=== PATIENT | female | born 1940 | race Caucasian/White ===

== ENCOUNTER 2020-05-01 16:18 | Inpatient (IN) ==
[2020-05-01 16:55] LABS: Bacteria,Urine Occasional /HPF (Few); Bilirubin,Urine Negative (Negative); Blood, Urine Negative (Negative); Glucose,Urine (UA) Negative (Negative); Hyaline Casts,Urine 9 /LPF (0-3); Ketones,Urine Negative (Negative); Nitrite,Urine Negative (Negative); Protein,Urine Negative; RBC,Urine 25 /HPF (0-4); Urine Appearance CLOUDY (Clear); Urine Color Yellow (Yellow); Urine Specific Gravity 1.008 (1.001-1.035); Urine Urobilinogen < 2.0 EU/DL (0.2-1.0); WBC,Urine 160 /HPF (0-6)
[2020-05-01 17:28] LABS: Basophils % 0.4 % (0.0-0.8); Eosinophils # 0.1 10*3/uL (0.0-0.87); Eosinophils % 0.9 % (0.00-10.9); Hematocrit 27.4 VOL% (35.7-47.0); Immature Granulocytes Absolute 0.07 #; Lymphocytes # 1.5 10*3/uL (1.4-4.0); Lymphocytes % 20.9 % (21.3-54.2); Mean Corpuscular HGB Conc 32.8 GM/DL (32-36); Mean Corpuscular Volume 95.8 FL (87-102); Mean Platelet Volume 10.2 FL (9.6-12.0); Monocytes % 8.3 % (1.7-12.7); Neutrophils % 68.5 % (38.7-73.9); Platelet Count 72 T/CUMM (130-400); Red Blood Count 2.86 MC/CUMM (3.8-5.5)
[2020-05-01 17:47] LABS: INR 1.2; PT Patient Result 12.4 SECS (9.8-11.9); Partial Thromboplastin Time 29.5 SECS (23.9-33.8)
[2020-05-01 18:09] LABS: Albumin 2.6 G/DL (3.4-5.0); Calcium 8.5 MG/DL (8.5-10.1); Total Protein 6.8 G/DL (6.4-8.3)
[2020-05-01] MEDS ORDERED: cefTRIAXone 1,000 MG in SODIUM CHLORIDE 0.9% 100 ML IV STA (18:18)
[2020-05-01] MEDS ORDERED: LACTULOSE 20 GM/30 ML UDCUP PO STA (18:59)
[2020-05-01] MEDS ORDERED: GLUCAGON 1 MG VIAL IM PRN (19:14)
[2020-05-01] MEDS ORDERED: DEXTROSE 50% 25 GM/50 ML VIAL IV PRN (19:14)
[2020-05-01] MEDS ORDERED: DEXTROSE 50% 25 GM/50 ML SYRINGE IV PRN (19:19)
[2020-05-01] MEDS ORDERED: ZINC SULFATE 220 MG CAPSULE PO ONE (21:00)
[2020-05-02] MEDS: LACTATED RINGERS 1,000 ML IV SCH ×6 (01:40→21:27)
[2020-05-02] MEDS: INSULIN REGULAR 100 UNIT/ML SUBCUT SCH ×5 (01:59→22:27)
[2020-05-02] MEDS: ONDANSETRON 4 MG/2 ML VIAL IV PRN ×2 (04:36→20:43)
[2020-05-02 07:57] LABS: Basophils % 0.4 % (0.0-0.8); Eosinophils # 0.1 10*3/uL (0.0-0.87); Eosinophils % 0.9 % (0.00-10.9); Hematocrit 26.7 VOL% (35.7-47.0); Hemoglobin 8.8 GM/DL (12.0-16.0); Immature Granulocytes % 0.7 %; Immature Granulocytes Absolute 0.05 #; Lymphocytes # 1.9 10*3/uL (1.4-4.0); Lymphocytes % 25.2 % (21.3-54.2); Mean Platelet Volume 10.4 FL (9.6-12.0); Monocytes % 7.8 % (1.7-12.7); Platelet Count 71 T/CUMM (130-400); Red Blood Count 2.78 MC/CUMM (3.8-5.5); White Blood Count 7.7 T/CUMM (4-12)
[2020-05-02 08:24] LABS: Albumin 2.4 G/DL (3.4-5.0); Bilirubin,Total 1.3 MG/DL (0.2-1.0); Calcium 8.6 MG/DL (8.5-10.1); Osmolality,Calculated 288.1 MOS/KG (273-304); Total Protein 6.7 G/DL (6.4-8.3)
[2020-05-02] MEDS ORDERED: NITROGLYCERIN SL 0.4 MG TABLET SL PRN (09:12)
[2020-05-02] MEDS: PANTOPRAZOLE 40 MG TABLET PO SCH (09:54)
[2020-05-02 11:03] LABS: Hepatitis B Core IgM Quant 0.15 Index; Hepatitis B Surface Ag Quant < 0.10 Index; Hepatitis B Surface Ag Result Negative (Negative); Hepatitis C Virus Ab Quant 0.05 Index; Hepatitis C Virus Ab Result Negative (Negative)
[2020-05-02 11:42] LABS: Lymphocytes 16 % (20-55); Polychromasia Slight; Schistocytes Few; Segmented Neutrophils 82 % (50-85); Total Cells Counted 100
[2020-05-02 11:43] LABS: Hypochromasia 2+; Ovalocytes Few; Tear Drop Cells Slight
[2020-05-02] MEDS: FUROSEMIDE 40 MG TABLET PO SCH (15:03)
[2020-05-02] MEDS: LACTULOSE 20 GM/30 ML UDCUP PO SCH (17:37)
[2020-05-02] MEDS: RIVASTIGMINE 1.5 MG CAPSULE PO SCH (22:17)
[2020-05-02] MEDS: MIRTAZAPINE 15 MG TABLET PO SCH (22:18)
[2020-05-02] MEDS: GABAPENTIN 600 MG TABLET PO SCH (22:19)
[2020-05-02] MEDS: traZODone 50 MG TABLET PO SCH (22:19)
[2020-05-02] MEDS: clonazePAM 0.5 MG TABLET PO SCH (22:19)
[2020-05-02] MEDS: PEG PROPYLENE GLYCOL BOTH EYES SCH (22:27)
[2020-05-02] MEDS: DOCUSATE SODIUM 100 MG CAPSULE PO SCH (22:27)
[2020-05-03] MEDS: LACTATED RINGERS 1,000 ML IV SCH ×5 (02:16→19:29)
[2020-05-03 05:57] LABS: Basophils % 0.5 % (0.0-0.8); Eosinophils # 0.1 10*3/uL (0.0-0.87); Eosinophils % 1.2 % (0.00-10.9); Hemoglobin 8.3 GM/DL (12.0-16.0); Immature Granulocytes % 0.6 %; Immature Granulocytes Absolute 0.05 #; Lymphocytes % 24.2 % (21.3-54.2); Mean Corpuscular HGB Conc 31.9 GM/DL (32-36); Mean Corpuscular Volume 98.9 FL (87-102); Mean Platelet Volume 11.2 FL (9.6-12.0); Monocytes % 7.4 % (1.7-12.7); Neutrophils % 66.1 % (38.7-73.9); Platelet Count 67 T/CUMM (130-400); Red Blood Count 2.63 MC/CUMM (3.8-5.5); Red Cell Distribution Width 19.5 % (9.3-17.3); White Blood Count 8.2 T/CUMM (4-12)
[2020-05-03 06:42] LABS: Hypochromasia 1+; Microcytosis 1+; Platelet Estimate Decreased
[2020-05-03] MEDS: FUROSEMIDE 40 MG TABLET PO SCH ×2 (07:09→13:18)
[2020-05-03 07:30] LABS: Basophils % 0.5 % (0.0-0.8); Eosinophils # 0.1 10*3/uL (0.0-0.87); Eosinophils % 1.1 % (0.00-10.9); Hematocrit 26.4 VOL% (35.7-47.0); Hemoglobin 8.6 GM/DL (12.0-16.0); Immature Granulocytes % 0.7 %; Immature Granulocytes Absolute 0.06 #; Lymphocytes # 2.3 10*3/uL (1.4-4.0); Lymphocytes % 26.9 % (21.3-54.2); Mean Corpuscular HGB Conc 32.6 GM/DL (32-36); Mean Corpuscular Volume 96.7 FL (87-102); Mean Platelet Volume 10.4 FL (9.6-12.0); Monocytes % 7.9 % (1.7-12.7); Neutrophils % 62.9 % (38.7-73.9); Platelet Count 69 T/CUMM (130-400); Red Blood Count 2.73 MC/CUMM (3.8-5.5); Red Cell Distribution Width 19.4 % (9.3-17.3); White Blood Count 8.4 T/CUMM (4-12)
[2020-05-03 07:51] LABS: Hypochromasia 1+; Lymphocytes 24 % (20-55); Microcytosis 1+; Ovalocytes Slight; Platelet Estimate Decreased; Segmented Neutrophils 70 % (50-85); Total Cells Counted 100
[2020-05-03] MEDS: INSULIN REGULAR 100 UNIT/ML SUBCUT SCH ×4 (08:44→22:04)
[2020-05-03] MEDS ORDERED: LACTULOSE 20 GM/30 ML UDCUP PO SCH (09:00)
[2020-05-03] MEDS: AMIODARONE 200 MG TABLET PO SCH (09:52)
[2020-05-03] MEDS: LEVOTHYROXINE 88 MCG TABLET PO SCH (09:52)
[2020-05-03] MEDS: metOLazone 5 MG TABLET PO SCH (09:52)
[2020-05-03] MEDS: POTASSIUM CHLORIDE 20 MEQ TABLET PO SCH (09:52)
[2020-05-03] MEDS: FOLIC ACID 1 MG TABLET PO SCH (09:53)
[2020-05-03] MEDS: LOSARTAN 50 MG TABLET PO SCH (09:53)
[2020-05-03] MEDS: RIVASTIGMINE 1.5 MG CAPSULE PO SCH ×2 (09:53→21:28)
[2020-05-03] MEDS: ASPIRIN EC 81 MG TABLET PO SCH (09:53)
[2020-05-03] MEDS: ASCORBIC ACID 500 MG TABLET PO SCH (09:53)
[2020-05-03] MEDS: rOPINIRole 1 MG TABLET PO SCH (09:53)
[2020-05-03] MEDS: FERROUS SULFATE 325 MG TABLET PO SCH (09:53)
[2020-05-03] MEDS: PANTOPRAZOLE 40 MG TABLET PO SCH ×2 (09:53→10:02)
[2020-05-03] MEDS: LACTULOSE 20 GM/30 ML UDCUP PO SCH ×2 (09:54→21:29)
[2020-05-03] MEDS: clonazePAM 0.5 MG TABLET PO SCH ×2 (09:54→21:28)
[2020-05-03] MEDS: MEROPENEM 500 MG in SODIUM CHLORIDE 0.9% 100 ML IV SCH (14:51)
[2020-05-03] MEDS ORDERED: LACTULOSE 20 GM/30 ML UDCUP PO PRN (17:01)
[2020-05-03] MEDS: GABAPENTIN 600 MG TABLET PO SCH (21:27)
[2020-05-03] MEDS: traZODone 50 MG TABLET PO SCH (21:28)
[2020-05-03] MEDS: DOCUSATE SODIUM 100 MG CAPSULE PO SCH (21:28)
[2020-05-03] MEDS: MIRTAZAPINE 15 MG TABLET PO SCH (21:28)
[2020-05-03] MEDS: PEG PROPYLENE GLYCOL BOTH EYES SCH (22:57)
[2020-05-04] MEDS: MEROPENEM 500 MG in SODIUM CHLORIDE 0.9% 100 ML IV SCH ×2 (03:06→14:26)
[2020-05-04] MEDS: LACTATED RINGERS 1,000 ML IV SCH ×3 (04:56→23:00)
[2020-05-04 06:39] LABS: Albumin 2.1 G/DL (3.4-5.0); Osmolality,Calculated 281.5 MOS/KG (273-304); Total Protein 6.6 G/DL (6.4-8.3)
[2020-05-04] MEDS: LACTULOSE 20 GM/30 ML UDCUP PO SCH ×2 (09:38→22:35)
[2020-05-04] MEDS: RIVASTIGMINE 1.5 MG CAPSULE PO SCH ×2 (09:38→22:42)
[2020-05-04] MEDS: AMIODARONE 200 MG TABLET PO SCH (09:38)
[2020-05-04] MEDS: rOPINIRole 1 MG TABLET PO SCH (09:38)
[2020-05-04] MEDS: clonazePAM 0.5 MG TABLET PO SCH ×2 (09:38→22:35)
[2020-05-04] MEDS: ASPIRIN EC 81 MG TABLET PO SCH (09:38)
[2020-05-04] MEDS: FOLIC ACID 1 MG TABLET PO SCH (09:39)
[2020-05-04] MEDS: POTASSIUM CHLORIDE 20 MEQ TABLET PO SCH (09:39)
[2020-05-04] MEDS: metOLazone 5 MG TABLET PO SCH (09:39)
[2020-05-04] MEDS: LEVOTHYROXINE 88 MCG TABLET PO SCH (09:39)
[2020-05-04] MEDS: FUROSEMIDE 40 MG TABLET PO SCH ×2 (09:39→14:01)
[2020-05-04] MEDS: INSULIN REGULAR 100 UNIT/ML SUBCUT SCH ×4 (09:39→23:02)
[2020-05-04] MEDS: FERROUS SULFATE 325 MG TABLET PO SCH (09:39)
[2020-05-04] MEDS: PANTOPRAZOLE 40 MG TABLET PO SCH (09:39)
[2020-05-04] MEDS: ASCORBIC ACID 500 MG TABLET PO SCH (09:39)
[2020-05-04] MEDS: LOSARTAN 50 MG TABLET PO SCH (09:39)
[2020-05-04] MEDS: ONDANSETRON 4 MG/2 ML VIAL IV PRN ×2 (14:08→22:41)
[2020-05-04] MEDS: POLYETHYLENE GLYCOL POWDER 17 GM PACK PO SCH (14:27)
[2020-05-04] MEDS: MIRTAZAPINE 15 MG TABLET PO SCH (22:35)
[2020-05-04] MEDS: GABAPENTIN 600 MG TABLET PO SCH (22:35)
[2020-05-04] MEDS: traZODone 50 MG TABLET PO SCH (22:35)
[2020-05-04] MEDS: DOCUSATE SODIUM 100 MG CAPSULE PO SCH (22:35)
[2020-05-04] MEDS: PEG PROPYLENE GLYCOL BOTH EYES SCH (22:37)
[2020-05-04] MEDS: RIFAXIMIN 550 MG TABLET PO SCH (22:41)
[2020-05-05] MEDS: MEROPENEM 500 MG in SODIUM CHLORIDE 0.9% 100 ML IV SCH ×2 (02:11→15:23)
[2020-05-05] MEDS: LACTATED RINGERS 1,000 ML IV SCH ×4 (03:02→20:45)
[2020-05-05 05:48] LABS: Basophils % 0.4 % (0.0-0.8); Eosinophils # 0.1 10*3/uL (0.0-0.87); Eosinophils % 1.1 % (0.00-10.9); Hemoglobin 9.2 GM/DL (12.0-16.0); Immature Granulocytes % 0.9 %; Immature Granulocytes Absolute 0.06 #; Lymphocytes # 1.9 10*3/uL (1.4-4.0); Lymphocytes % 27.5 % (21.3-54.2); Mean Corpuscular HGB Conc 34.1 GM/DL (32-36); Mean Corpuscular Volume 98.9 FL (87-102); Mean Platelet Volume 10.7 FL (9.6-12.0); Monocytes % 8.5 % (1.7-12.7); Neutrophils % 61.6 % (38.7-73.9); Red Blood Count 2.73 MC/CUMM (3.8-5.5); Red Cell Distribution Width 19.5 % (9.3-17.3)
[2020-05-05 05:51] LABS: Platelet Count 75 T/CUMM (130-400)
[2020-05-05 06:04] LABS: Calcium 7.9 MG/DL (8.5-10.1); Osmolality,Calculated 282.4 MOS/KG (273-304)
[2020-05-05 06:14] LABS: Hypochromasia 1+; Microcytosis Slight; Ovalocytes Slight; Platelet Estimate Decreased
[2020-05-05] MEDS: INSULIN REGULAR 100 UNIT/ML SUBCUT SCH ×4 (07:43→20:52)
[2020-05-05] MEDS: clonazePAM 0.5 MG TABLET PO SCH ×2 (08:01→22:43)
[2020-05-05] MEDS: RIVASTIGMINE 1.5 MG CAPSULE PO SCH ×2 (08:01→22:44)
[2020-05-05] MEDS: rOPINIRole 1 MG TABLET PO SCH (08:01)
[2020-05-05] MEDS: FUROSEMIDE 40 MG TABLET PO SCH ×2 (08:01→15:23)
[2020-05-05] MEDS: LEVOTHYROXINE 88 MCG TABLET PO SCH (08:01)
[2020-05-05] MEDS: metOLazone 5 MG TABLET PO SCH (08:02)
[2020-05-05] MEDS: ASPIRIN EC 81 MG TABLET PO SCH (08:02)
[2020-05-05] MEDS: FERROUS SULFATE 325 MG TABLET PO SCH (08:02)
[2020-05-05] MEDS: RIFAXIMIN 550 MG TABLET PO SCH ×2 (08:02→22:46)
[2020-05-05] MEDS: PANTOPRAZOLE 40 MG TABLET PO SCH (08:02)
[2020-05-05] MEDS: ASCORBIC ACID 500 MG TABLET PO SCH (08:02)
[2020-05-05] MEDS: POTASSIUM CHLORIDE 20 MEQ TABLET PO SCH (08:03)
[2020-05-05] MEDS: LACTULOSE 20 GM/30 ML UDCUP PO SCH ×2 (08:03→22:47)
[2020-05-05] MEDS: FOLIC ACID 1 MG TABLET PO SCH (08:03)
[2020-05-05] MEDS: LOSARTAN 50 MG TABLET PO SCH (08:03)
[2020-05-05] MEDS: AMIODARONE 200 MG TABLET PO SCH (08:03)
[2020-05-05] MEDS: POLYETHYLENE GLYCOL POWDER 17 GM PACK PO SCH (08:03)
[2020-05-05] MEDS: MIRTAZAPINE 15 MG TABLET PO SCH (22:43)
[2020-05-05] MEDS: DOCUSATE SODIUM 100 MG CAPSULE PO SCH (22:45)
[2020-05-05] MEDS: GABAPENTIN 600 MG TABLET PO SCH (22:45)
[2020-05-05] MEDS: traZODone 50 MG TABLET PO SCH (22:45)
[2020-05-05] MEDS: PEG PROPYLENE GLYCOL BOTH EYES SCH (22:49)
[2020-05-06] MEDS: MEROPENEM 500 MG in SODIUM CHLORIDE 0.9% 100 ML IV SCH ×2 (01:46→15:13)
[2020-05-06] MEDS: LACTATED RINGERS 1,000 ML IV SCH ×3 (04:58→23:05)
[2020-05-06] MEDS: LEVOTHYROXINE 88 MCG TABLET PO SCH (07:15)
[2020-05-06] MEDS: FUROSEMIDE 40 MG TABLET PO SCH ×2 (07:15→15:12)
[2020-05-06] MEDS: INSULIN REGULAR 100 UNIT/ML SUBCUT SCH ×4 (07:29→23:05)
[2020-05-06] MEDS: RIVASTIGMINE 1.5 MG CAPSULE PO SCH ×2 (08:27→21:13)
[2020-05-06] MEDS: LACTULOSE 20 GM/30 ML UDCUP PO SCH ×2 (08:27→21:17)
[2020-05-06] MEDS: PANTOPRAZOLE 40 MG TABLET PO SCH (08:28)
[2020-05-06] MEDS: FOLIC ACID 1 MG TABLET PO SCH (08:28)
[2020-05-06] MEDS: rOPINIRole 1 MG TABLET PO SCH (08:28)
[2020-05-06] MEDS: POTASSIUM CHLORIDE 20 MEQ TABLET PO SCH (08:28)
[2020-05-06] MEDS: LOSARTAN 50 MG TABLET PO SCH (08:28)
[2020-05-06] MEDS: metOLazone 5 MG TABLET PO SCH (08:28)
[2020-05-06] MEDS: RIFAXIMIN 550 MG TABLET PO SCH ×2 (08:28→21:16)
[2020-05-06] MEDS: ASPIRIN EC 81 MG TABLET PO SCH (08:28)
[2020-05-06] MEDS: ASCORBIC ACID 500 MG TABLET PO SCH (08:28)
[2020-05-06] MEDS: clonazePAM 0.5 MG TABLET PO SCH ×2 (08:28→21:15)
[2020-05-06] MEDS: AMIODARONE 200 MG TABLET PO SCH (08:28)
[2020-05-06] MEDS: FERROUS SULFATE 325 MG TABLET PO SCH (08:28)
[2020-05-06] MEDS: POLYETHYLENE GLYCOL POWDER 17 GM PACK PO SCH (08:29)
[2020-05-06] MEDS: MIRTAZAPINE 15 MG TABLET PO SCH (21:13)
[2020-05-06] MEDS: traZODone 50 MG TABLET PO SCH (21:14)
[2020-05-06] MEDS: DOCUSATE SODIUM 100 MG CAPSULE PO SCH (21:16)
[2020-05-06] MEDS: GABAPENTIN 600 MG TABLET PO SCH (21:16)
[2020-05-06] MEDS: PEG PROPYLENE GLYCOL BOTH EYES SCH (23:05)
[2020-05-07] MEDS: MEROPENEM 500 MG in SODIUM CHLORIDE 0.9% 100 ML IV SCH (02:15)
[2020-05-07] MEDS: ONDANSETRON 4 MG/2 ML VIAL IV PRN (05:25)
[2020-05-07 06:33] LABS: Basophils % 0.6 % (0.0-0.8); Eosinophils # 0.1 10*3/uL (0.0-0.87); Eosinophils % 0.9 % (0.00-10.9); Hematocrit 27.6 VOL% (35.7-47.0); Hemoglobin 9.1 GM/DL (12.0-16.0); Immature Granulocytes % 0.6 %; Immature Granulocytes Absolute 0.04 #; Lymphocytes # 1.8 10*3/uL (1.4-4.0); Lymphocytes % 26.4 % (21.3-54.2); Mean Corpuscular Volume 95.2 FL (87-102); Mean Platelet Volume 10.7 FL (9.6-12.0); Monocytes % 7.7 % (1.7-12.7); Neutrophils % 63.8 % (38.7-73.9); White Blood Count 6.7 T/CUMM (4-12)
[2020-05-07 06:42] LABS: Platelet Count 86 T/CUMM (130-400)
[2020-05-07 06:46] LABS: Hypochromasia 2+; Platelet Estimate Decreased
[2020-05-07] MEDS: FUROSEMIDE 40 MG TABLET PO SCH (06:53)
[2020-05-07] MEDS: LEVOTHYROXINE 88 MCG TABLET PO SCH (06:53)
[2020-05-07 08:22] VITALS: BP 116/67
[2020-05-07] MEDS: INSULIN REGULAR 100 UNIT/ML SUBCUT SCH (08:42)
[2020-05-07] MEDS: POLYETHYLENE GLYCOL POWDER 17 GM PACK PO SCH (08:43)
[2020-05-07] MEDS: clonazePAM 0.5 MG TABLET PO SCH (08:43)
[2020-05-07] MEDS: FERROUS SULFATE 325 MG TABLET PO SCH (08:43)
[2020-05-07] MEDS: POTASSIUM CHLORIDE 20 MEQ TABLET PO SCH (08:43)
[2020-05-07] MEDS: AMIODARONE 200 MG TABLET PO SCH (08:43)
[2020-05-07] MEDS: RIVASTIGMINE 1.5 MG CAPSULE PO SCH (08:43)
[2020-05-07] MEDS: LOSARTAN 50 MG TABLET PO SCH (08:43)
[2020-05-07] MEDS: LACTATED RINGERS 1,000 ML IV SCH (08:43)
[2020-05-07] MEDS: ASPIRIN EC 81 MG TABLET PO SCH (08:43)
[2020-05-07] MEDS: FOLIC ACID 1 MG TABLET PO SCH (08:43)
[2020-05-07] MEDS: PANTOPRAZOLE 40 MG TABLET PO SCH (08:43)
[2020-05-07] MEDS: metOLazone 5 MG TABLET PO SCH (08:44)
[2020-05-07] MEDS: ASCORBIC ACID 500 MG TABLET PO SCH (08:44)
[2020-05-07] MEDS: rOPINIRole 1 MG TABLET PO SCH (08:44)
[2020-05-07] MEDS: RIFAXIMIN 550 MG TABLET PO SCH (08:44)
[2020-05-07] MEDS ORDERED: LACTULOSE 20 GM/30 ML UDCUP PO SCH (09:00)
== END 2020-05-07 11:40 | disposition swing bed (61) | DRG 442 ==
LOC: EDUNIT# → EDBD → N.ED 16:18 → N.EDINP 16:18 → N.TELES 20:50
PROVIDERS: ADMIT Internal Medicine; ATTEND Family Medicine

== ENCOUNTER 2020-05-15 14:41 | Inpatient (IN) ==
[2020-05-15 15:28] LABS: Basophils % 0.4 % (0.0-0.8); Eosinophils # 0.1 10*3/uL (0.0-0.87); Eosinophils % 1.4 % (0.00-10.9); Hematocrit 25.6 VOL% (35.7-47.0); Hemoglobin 8.6 GM/DL (12.0-16.0); Immature Granulocytes % 0.7 %; Immature Granulocytes Absolute 0.05 #; Lymphocytes # 0.9 10*3/uL (1.4-4.0); Lymphocytes % 12.1 % (21.3-54.2); Mean Corpuscular HGB Conc 33.6 GM/DL (32-36); Mean Corpuscular Volume 95.5 FL (87-102); Mean Platelet Volume 9.2 FL (9.6-12.0); Monocytes % 5.6 % (1.7-12.7); Neutrophils % 79.8 % (38.7-73.9); Platelet Count 104 T/CUMM (130-400); Red Blood Count 2.68 MC/CUMM (3.8-5.5); Red Cell Distribution Width 18.8 % (9.3-17.3); White Blood Count 7.4 T/CUMM (4-12)
[2020-05-15 15:56] LABS: Osmolality,Calculated 275.9 MOS/KG (273-304)
[2020-05-15 16:08] LABS: Albumin 2.2 G/DL (3.4-5.0); Bilirubin,Direct 0.38 MG/DL (0.0-0.20); Bilirubin,Indirect 0.3 MG/DL (0.0-1.0); Bilirubin,Total 0.7 MG/DL (0.2-1.0); Total Protein 6.7 G/DL (6.4-8.3)
[2020-05-15] MEDS ORDERED: SODIUM CHLORIDE 0.9% 500 ML IV STA (16:42)
[2020-05-15 17:03] LABS: Bacteria,Urine Occasional /HPF (Few); Bilirubin,Urine Negative (Negative); Blood, Urine Negative (Negative); Glucose,Urine (UA) Negative (Negative); Hyaline Casts,Urine 12 /LPF (0-3); Ketones,Urine Negative (Negative); Mucus,Urine Occasional /LPF (Occasional); Nitrite,Urine Negative (Negative); Protein,Urine Negative; RBC,Urine 4 /HPF (0-4); Squamous Epithelial Cell,Urine Occasional /HPF (0-10); Urine Appearance Slightly Hazy (Clear); Urine Color Yellow (Yellow); Urine Urobilinogen < 2.0 EU/DL (0.2-1.0); WBC,Urine 3 /HPF (0-6)
[2020-05-15] MEDS ORDERED: DEXTROSE 50% 25 GM/50 ML VIAL IV PRN (17:10)
[2020-05-15] MEDS ORDERED: GLUCAGON 1 MG VIAL IM PRN (17:10)
[2020-05-15] MEDS ORDERED: LACTULOSE 20 GM/30 ML UDCUP PO STA (17:14)
[2020-05-15] MEDS: ONDANSETRON 4 MG/2 ML VIAL IV PRN (18:25)
[2020-05-15] MEDS: INSULIN REGULAR 100 UNIT/ML SUBCUT SCH (20:38)
[2020-05-15] MEDS: RIFAXIMIN 550 MG TABLET PO SCH (23:03)
[2020-05-15] MEDS: SODIUM CHLORIDE 0.9% 1,000 ML IV SCH (23:03)
[2020-05-16] MEDS: ONDANSETRON 4 MG/2 ML VIAL IV PRN (06:15)
[2020-05-16] MEDS: SODIUM CHLORIDE 0.9% 1,000 ML IV SCH ×3 (08:35→22:52)
[2020-05-16] MEDS: INSULIN REGULAR 100 UNIT/ML SUBCUT SCH ×4 (08:41→20:40)
[2020-05-16] MEDS: PANTOPRAZOLE 40 MG TABLET PO SCH (10:58)
[2020-05-16] MEDS: RIFAXIMIN 550 MG TABLET PO SCH ×2 (10:58→22:53)
[2020-05-16] MEDS ORDERED: NITROGLYCERIN SL 0.4 MG TABLET SL PRN (13:22)
[2020-05-16] MEDS: FUROSEMIDE 40 MG TABLET PO SCH (15:00)
[2020-05-16] MEDS: DOCUSATE SODIUM 100 MG CAPSULE PO SCH ×2 (22:00→22:52)
[2020-05-16] MEDS: clonazePAM 0.5 MG TABLET PO SCH (22:53)
[2020-05-16] MEDS: traMADol 50 MG TABLET PO PRN (22:53)
[2020-05-16] MEDS: traZODone 50 MG TABLET PO SCH (22:53)
[2020-05-16] MEDS: GABAPENTIN 600 MG TABLET PO SCH (22:54)
[2020-05-17] MEDS: FUROSEMIDE 40 MG TABLET PO SCH ×2 (06:05→13:41)
[2020-05-17] MEDS: LEVOTHYROXINE 88 MCG TABLET PO SCH (06:05)
[2020-05-17 07:16] LABS: Albumin 2.2 G/DL (3.4-5.0); Bilirubin,Total 1.1 MG/DL (0.2-1.0); Calcium 8.1 MG/DL (8.5-10.1); Osmolality,Calculated 278.9 MOS/KG (273-304); Thyroid Stimulating Hormone 4.55 uIU/ml (0.358-3.74); Total Protein 6.7 G/DL (6.4-8.3)
[2020-05-17] MEDS ORDERED: LOSARTAN 50 MG TABLET PO SCH (09:00)
[2020-05-17] MEDS ORDERED: PANTOPRAZOLE 40 MG TABLET PO SCH (09:00)
[2020-05-17] MEDS ORDERED: metOLazone 5 MG TABLET PO SCH (09:00)
[2020-05-17] MEDS ORDERED: POTASSIUM CHLORIDE 20 MEQ TABLET PO SCH (09:00)
[2020-05-17] MEDS ORDERED: LACTULOSE 20 GM/30 ML UDCUP PO SCH (09:00)
[2020-05-17] MEDS: RIVASTIGMINE 1.5 MG CAPSULE PO SCH ×2 (09:33→20:45)
[2020-05-17] MEDS: rOPINIRole 1 MG TABLET PO SCH (09:34)
[2020-05-17] MEDS: clonazePAM 0.5 MG TABLET PO SCH ×2 (09:34→20:45)
[2020-05-17] MEDS: ASPIRIN EC 81 MG TABLET PO SCH (09:34)
[2020-05-17] MEDS: FOLIC ACID 1 MG TABLET PO SCH (09:34)
[2020-05-17] MEDS: FERROUS SULFATE 325 MG TABLET PO SCH (09:34)
[2020-05-17] MEDS: RIFAXIMIN 550 MG TABLET PO SCH ×3 (09:34→20:45)
[2020-05-17] MEDS: AMIODARONE 200 MG TABLET PO SCH (09:34)
[2020-05-17] MEDS: ASCORBIC ACID 500 MG TABLET PO SCH (09:35)
[2020-05-17] MEDS: PANTOPRAZOLE 40 MG TABLET PO SCH (09:35)
[2020-05-17] MEDS: INSULIN REGULAR 100 UNIT/ML SUBCUT SCH ×4 (09:36→22:15)
[2020-05-17] MEDS: cefOXitin 1,000 MG in SYRINGE 1 EACH IV SCH ×2 (10:04→17:38)
[2020-05-17] MEDS ORDERED: TUBERCULIN SKIN TEST 0.1 ML SYRINGE INTRADERM ONE (15:42)
[2020-05-17] MEDS: SODIUM CHLORIDE 0.9% 1,000 ML IV SCH ×2 (17:37)
[2020-05-17] MEDS: ONDANSETRON 4 MG/2 ML VIAL IV PRN (18:10)
[2020-05-17] MEDS: DOCUSATE SODIUM 100 MG CAPSULE PO SCH (20:45)
[2020-05-17] MEDS: traZODone 50 MG TABLET PO SCH (20:45)
[2020-05-17] MEDS: GABAPENTIN 600 MG TABLET PO SCH (20:45)
[2020-05-17] MEDS: MIRTAZAPINE 15 MG TABLET PO SCH (20:45)
[2020-05-17] MEDS ORDERED: PEG PROPYLENE GLYCOL BOTH EYES SCH (21:00)
[2020-05-18] MEDS: cefOXitin 1,000 MG in SYRINGE 1 EACH IV SCH ×3 (02:57→17:10)
[2020-05-18 07:22] LABS: Basophils % 0.2 % (0.0-0.8); Eosinophils % 0.2 % (0.00-10.9); Hematocrit 24.1 VOL% (35.7-47.0); Immature Granulocytes % 1.5 %; Immature Granulocytes Absolute 0.19 #; Lymphocytes % 7.5 % (21.3-54.2); Mean Corpuscular HGB Conc 33.2 GM/DL (32-36); Mean Platelet Volume 9.7 FL (9.6-12.0); Neutrophils % 84.6 % (38.7-73.9); Platelet Count 89 T/CUMM (130-400); Red Blood Count 2.46 MC/CUMM (3.8-5.5); Red Cell Distribution Width 19.2 % (9.3-17.3)
[2020-05-18 07:42] LABS: Platelet Estimate Decreased
[2020-05-18 07:43] LABS: Anisocytosis 2+; Hypochromasia 1+; Macrocytosis 1+
[2020-05-18 07:48] LABS: Calcium 8.3 MG/DL (8.5-10.1); Osmolality,Calculated 273.5 MOS/KG (273-304)
[2020-05-18] MEDS ORDERED: SODIUM CHLORIDE 0.9% 500 ML IV ONE (07:57)
[2020-05-18] MEDS ORDERED: SODIUM POLYSTYRENE SULFATE 15 GM/60 ML BOTTLE PO ONE (07:58)
[2020-05-18] MEDS: FUROSEMIDE 40 MG TABLET PO SCH ×2 (09:42→14:03)
[2020-05-18] MEDS: LEVOTHYROXINE 88 MCG TABLET PO SCH (09:42)
[2020-05-18] MEDS: INSULIN REGULAR 100 UNIT/ML SUBCUT SCH ×4 (09:42→22:19)
[2020-05-18] MEDS: FERROUS SULFATE 325 MG TABLET PO SCH (09:43)
[2020-05-18] MEDS: AMIODARONE 200 MG TABLET PO SCH (09:43)
[2020-05-18] MEDS: clonazePAM 0.5 MG TABLET PO SCH ×2 (09:43→22:19)
[2020-05-18] MEDS: FOLIC ACID 1 MG TABLET PO SCH (09:43)
[2020-05-18] MEDS: LACTULOSE 20 GM/30 ML UDCUP PO SCH ×2 (09:43→20:55)
[2020-05-18] MEDS: rOPINIRole 1 MG TABLET PO SCH (09:43)
[2020-05-18] MEDS: PANTOPRAZOLE 40 MG TABLET PO SCH (09:43)
[2020-05-18] MEDS: RIVASTIGMINE 1.5 MG CAPSULE PO SCH ×2 (09:43→20:55)
[2020-05-18] MEDS: ASPIRIN EC 81 MG TABLET PO SCH (09:43)
[2020-05-18] MEDS: ASCORBIC ACID 500 MG TABLET PO SCH (09:44)
[2020-05-18] MEDS: RIFAXIMIN 550 MG TABLET PO SCH ×2 (09:44→22:20)
[2020-05-18] MEDS: ONDANSETRON 4 MG/2 ML VIAL IV PRN (11:23)
[2020-05-18] MEDS: SODIUM CHLORIDE 0.9% 1,000 ML IV SCH ×2 (17:10)
[2020-05-18] MEDS: traZODone 50 MG TABLET PO SCH (20:55)
[2020-05-18] MEDS: DOCUSATE SODIUM 100 MG CAPSULE PO SCH (20:55)
[2020-05-18] MEDS: GABAPENTIN 600 MG TABLET PO SCH (22:20)
[2020-05-18] MEDS: MIRTAZAPINE 15 MG TABLET PO SCH (22:20)
[2020-05-19] MEDS: cefOXitin 1,000 MG in SYRINGE 1 EACH IV SCH ×3 (02:41→17:51)
[2020-05-19] MEDS: SODIUM CHLORIDE 0.9% 1,000 ML IV SCH ×2 (02:41→06:33)
[2020-05-19 06:17] LABS: Basophils % 0.2 % (0.0-0.8); Eosinophils # 0.1 10*3/uL (0.0-0.87); Hematocrit 23.3 VOL% (35.7-47.0); Hemoglobin 7.7 GM/DL (12.0-16.0); Immature Granulocytes % 1.7 %; Immature Granulocytes Absolute 0.19 #; Lymphocytes # 1.1 10*3/uL (1.4-4.0); Lymphocytes % 9.4 % (21.3-54.2); Mean Corpuscular Volume 97.5 FL (87-102); Mean Platelet Volume 9.7 FL (9.6-12.0); Monocytes % 6.7 % (1.7-12.7); NRBC # 0.02 10*3/uL; Platelet Count 85 T/CUMM (130-400); Red Blood Count 2.39 MC/CUMM (3.8-5.5); Red Cell Distribution Width 18.6 % (9.3-17.3); White Blood Count 11.3 T/CUMM (4-12)
[2020-05-19 06:30] LABS: Osmolality,Calculated 281.9 MOS/KG (273-304)
[2020-05-19] MEDS: FUROSEMIDE 40 MG TABLET PO SCH ×2 (06:33→15:18)
[2020-05-19] MEDS: LEVOTHYROXINE 88 MCG TABLET PO SCH (06:34)
[2020-05-19 07:16] LABS: Platelet Estimate Decreased
[2020-05-19 07:17] LABS: Hypochromasia 1+; Microcytosis 1+
[2020-05-19] MEDS: ASPIRIN EC 81 MG TABLET PO SCH (08:49)
[2020-05-19] MEDS: PANTOPRAZOLE 40 MG TABLET PO SCH (08:49)
[2020-05-19] MEDS: FERROUS SULFATE 325 MG TABLET PO SCH (08:49)
[2020-05-19] MEDS: RIFAXIMIN 550 MG TABLET PO SCH ×2 (08:49→20:10)
[2020-05-19] MEDS: rOPINIRole 1 MG TABLET PO SCH (08:49)
[2020-05-19] MEDS: INSULIN REGULAR 100 UNIT/ML SUBCUT SCH ×4 (08:49→21:16)
[2020-05-19] MEDS: AMIODARONE 200 MG TABLET PO SCH (08:50)
[2020-05-19] MEDS: ASCORBIC ACID 500 MG TABLET PO SCH (08:50)
[2020-05-19] MEDS: clonazePAM 0.5 MG TABLET PO SCH ×2 (08:50→20:10)
[2020-05-19] MEDS: LACTULOSE 20 GM/30 ML UDCUP PO SCH ×2 (08:50→20:10)
[2020-05-19] MEDS: FOLIC ACID 1 MG TABLET PO SCH (08:50)
[2020-05-19] MEDS: RIVASTIGMINE 1.5 MG CAPSULE PO SCH ×2 (08:53→20:10)
[2020-05-19] MEDS ORDERED: TISSUE ADHESIVE 1 EACH APPLICATOR TOP ONE (10:27)
[2020-05-19] MEDS ORDERED: HEPARIN 5,000 UNIT/1 ML VIAL ONE (10:27)
[2020-05-19] MEDS ORDERED: LIDOCAINE 1%/EPI INJ 20 ML VIAL ONE (10:27)
[2020-05-19] MEDS ORDERED: BUPIVACAINE MPF 0.25% 30 ML VIAL ONE (10:27)
[2020-05-19] MEDS ORDERED: MIDAZOLAM 2 MG/2 ML VIAL ONE (10:56)
[2020-05-19] MEDS ORDERED: fentaNYL 100 MCG/2 ML VIAL ONE (10:57)
[2020-05-19 14:02] LABS: Hepatitis B Core IgM Quant 0.05 Index; Hepatitis B Surface Ag Quant < 0.10 Index; Hepatitis B Surface Ag Result Negative (Negative); Hepatitis C Virus Ab Quant 0.03 Index; Hepatitis C Virus Ab Result Negative (Negative)
[2020-05-19] MEDS: MIRTAZAPINE 15 MG TABLET PO SCH (20:10)
[2020-05-19] MEDS: DOCUSATE SODIUM 100 MG CAPSULE PO SCH (20:10)
[2020-05-19] MEDS: traZODone 50 MG TABLET PO SCH (20:10)
[2020-05-19] MEDS: GABAPENTIN 600 MG TABLET PO SCH (20:10)
[2020-05-19] MEDS: traMADol 50 MG TABLET PO PRN (21:25)
[2020-05-20] MEDS: cefOXitin 1,000 MG in SYRINGE 1 EACH IV SCH ×3 (03:30→17:56)
[2020-05-20] MEDS: LEVOTHYROXINE 88 MCG TABLET PO SCH (06:29)
[2020-05-20 06:37] LABS: Calcium 8.1 MG/DL (8.5-10.1); Osmolality,Calculated 280.7 MOS/KG (273-304)
[2020-05-20] MEDS: INSULIN REGULAR 100 UNIT/ML SUBCUT SCH ×4 (07:56→22:08)
[2020-05-20] MEDS: LACTULOSE 20 GM/30 ML UDCUP PO SCH ×2 (08:02→20:00)
[2020-05-20] MEDS: ASPIRIN EC 81 MG TABLET PO SCH (08:02)
[2020-05-20] MEDS: AMIODARONE 200 MG TABLET PO SCH (08:02)
[2020-05-20] MEDS: PANTOPRAZOLE 40 MG TABLET PO SCH (08:03)
[2020-05-20] MEDS: FOLIC ACID 1 MG TABLET PO SCH (08:03)
[2020-05-20] MEDS: clonazePAM 0.5 MG TABLET PO SCH ×2 (08:03→20:00)
[2020-05-20] MEDS: rOPINIRole 1 MG TABLET PO SCH (08:03)
[2020-05-20] MEDS: FERROUS SULFATE 325 MG TABLET PO SCH (08:03)
[2020-05-20] MEDS: RIVASTIGMINE 1.5 MG CAPSULE PO SCH ×2 (08:03→20:00)
[2020-05-20] MEDS: RIFAXIMIN 550 MG TABLET PO SCH ×2 (08:04→20:00)
[2020-05-20] MEDS: ASCORBIC ACID 500 MG TABLET PO SCH (08:08)
[2020-05-20] MEDS: MIRTAZAPINE 15 MG TABLET PO SCH (20:00)
[2020-05-20] MEDS: GABAPENTIN 600 MG TABLET PO SCH (20:00)
[2020-05-20] MEDS: traMADol 50 MG TABLET PO PRN (20:00)
[2020-05-20] MEDS: DOCUSATE SODIUM 100 MG CAPSULE PO SCH (20:00)
[2020-05-20] MEDS: traZODone 50 MG TABLET PO SCH (20:00)
[2020-05-21] MEDS: cefOXitin 1,000 MG in SYRINGE 1 EACH IV SCH ×3 (01:32→18:01)
[2020-05-21] MEDS: LEVOTHYROXINE 88 MCG TABLET PO SCH (06:02)
[2020-05-21 06:45] LABS: Calcium 8.4 MG/DL (8.5-10.1); Osmolality,Calculated 283.8 MOS/KG (273-304)
[2020-05-21] MEDS: INSULIN REGULAR 100 UNIT/ML SUBCUT SCH ×4 (08:01→21:03)
[2020-05-21] MEDS: AMIODARONE 200 MG TABLET PO SCH (14:06)
[2020-05-21] MEDS: LACTULOSE 20 GM/30 ML UDCUP PO SCH ×2 (14:06→21:02)
[2020-05-21] MEDS: clonazePAM 0.5 MG TABLET PO SCH ×2 (14:07→21:02)
[2020-05-21] MEDS: RIFAXIMIN 550 MG TABLET PO SCH ×2 (14:07→21:02)
[2020-05-21] MEDS: ASPIRIN EC 81 MG TABLET PO SCH (14:07)
[2020-05-21] MEDS: PANTOPRAZOLE 40 MG TABLET PO SCH (14:07)
[2020-05-21] MEDS: ASCORBIC ACID 500 MG TABLET PO SCH (14:07)
[2020-05-21] MEDS: FERROUS SULFATE 325 MG TABLET PO SCH (14:07)
[2020-05-21] MEDS: FOLIC ACID 1 MG TABLET PO SCH (14:07)
[2020-05-21] MEDS: rOPINIRole 1 MG TABLET PO SCH (14:07)
[2020-05-21] MEDS: RIVASTIGMINE 1.5 MG CAPSULE PO SCH ×2 (14:08→21:03)
[2020-05-21] MEDS: GABAPENTIN 600 MG TABLET PO SCH (21:02)
[2020-05-21] MEDS: traMADol 50 MG TABLET PO PRN (21:02)
[2020-05-21] MEDS: traZODone 50 MG TABLET PO SCH (21:02)
[2020-05-21] MEDS: DOCUSATE SODIUM 100 MG CAPSULE PO SCH (21:03)
[2020-05-21] MEDS: MIRTAZAPINE 15 MG TABLET PO SCH (21:03)
[2020-05-22] MEDS: cefOXitin 1,000 MG in SYRINGE 1 EACH IV SCH ×3 (02:48→17:48)
[2020-05-22 05:58] LABS: Calcium 8.1 MG/DL (8.5-10.1); Osmolality,Calculated 276.5 MOS/KG (273-304)
[2020-05-22] MEDS: LEVOTHYROXINE 88 MCG TABLET PO SCH (06:13)
[2020-05-22] MEDS: INSULIN REGULAR 100 UNIT/ML SUBCUT SCH ×4 (09:22→21:03)
[2020-05-22] MEDS: LACTULOSE 20 GM/30 ML UDCUP PO SCH ×2 (09:23→21:01)
[2020-05-22] MEDS: RIFAXIMIN 550 MG TABLET PO SCH ×2 (09:23→21:02)
[2020-05-22] MEDS: clonazePAM 0.5 MG TABLET PO SCH ×2 (09:24→21:02)
[2020-05-22] MEDS: ASCORBIC ACID 500 MG TABLET PO SCH (09:24)
[2020-05-22] MEDS: ASPIRIN EC 81 MG TABLET PO SCH (09:24)
[2020-05-22] MEDS: RIVASTIGMINE 1.5 MG CAPSULE PO SCH ×2 (09:24→21:02)
[2020-05-22] MEDS: PANTOPRAZOLE 40 MG TABLET PO SCH (09:24)
[2020-05-22] MEDS: FERROUS SULFATE 325 MG TABLET PO SCH (09:24)
[2020-05-22] MEDS: AMIODARONE 200 MG TABLET PO SCH (09:24)
[2020-05-22] MEDS: rOPINIRole 1 MG TABLET PO SCH (09:24)
[2020-05-22] MEDS: FOLIC ACID 1 MG TABLET PO SCH (09:25)
[2020-05-22] MEDS: ALBUMIN 25% 25 GM in PREMIX 1 EACH IV SCH ×2 (14:02→21:01)
[2020-05-22 15:19] LABS: Albumin 2.1 G/DL (3.4-5.0); Osmolality,Calculated 278.2 MOS/KG (273-304); Total Protein 6.8 G/DL (6.4-8.3)
[2020-05-22] MEDS: traMADol 50 MG TABLET PO PRN (18:03)
[2020-05-22] MEDS: DOCUSATE SODIUM 100 MG CAPSULE PO SCH (21:02)
[2020-05-22] MEDS: traZODone 50 MG TABLET PO SCH (21:02)
[2020-05-22] MEDS: MIRTAZAPINE 15 MG TABLET PO SCH (21:02)
[2020-05-22] MEDS: GABAPENTIN 600 MG TABLET PO SCH (21:03)
[2020-05-23] MEDS: cefOXitin 1,000 MG in SYRINGE 1 EACH IV SCH ×3 (01:48→17:35)
[2020-05-23] MEDS: ALBUMIN 25% 25 GM in PREMIX 1 EACH IV SCH ×3 (04:38→20:34)
[2020-05-23] MEDS: LEVOTHYROXINE 88 MCG TABLET PO SCH (06:24)
[2020-05-23 06:28] LABS: Basophils % 0.3 % (0.0-0.8); Eosinophils # 0.4 10*3/uL (0.0-0.87); Eosinophils % 4.9 % (0.00-10.9); Hematocrit 20.3 VOL% (35.7-47.0); Hemoglobin 6.7 GM/DL (12.0-16.0); Immature Granulocytes % 2.8 %; Immature Granulocytes Absolute 0.22 #; Lymphocytes # 0.8 10*3/uL (1.4-4.0); Lymphocytes % 10.2 % (21.3-54.2); Mean Corpuscular Volume 97.1 FL (87-102); Mean Platelet Volume 9.1 FL (9.6-12.0); Monocytes % 8.9 % (1.7-12.7); NRBC # 0.03 10*3/uL; Neutrophils % 72.9 % (38.7-73.9); Platelet Count 65 T/CUMM (130-400); Red Blood Count 2.09 MC/CUMM (3.8-5.5); Red Cell Distribution Width 19.7 % (9.3-17.3); White Blood Count 7.9 T/CUMM (4-12)
[2020-05-23 06:56] LABS: Bilirubin,Total 1.1 MG/DL (0.2-1.0); Calcium 8.2 MG/DL (8.5-10.1); Osmolality,Calculated 278.2 MOS/KG (273-304); Total Protein 6.6 G/DL (6.4-8.3)
[2020-05-23 06:57] LABS: Hypochromasia 2+; Microcytosis 1+; Ovalocytes Slight; Platelet Estimate Decreased
[2020-05-23 07:00] LABS: Calcium 8.1 MG/DL (8.5-10.1); Osmolality,Calculated 280.1 MOS/KG (273-304)
[2020-05-23] MEDS: INSULIN REGULAR 100 UNIT/ML SUBCUT SCH ×4 (07:50→21:20)
[2020-05-23] MEDS: FOLIC ACID 1 MG TABLET PO SCH (09:55)
[2020-05-23] MEDS: RIFAXIMIN 550 MG TABLET PO SCH ×2 (09:55→20:33)
[2020-05-23] MEDS: ASPIRIN EC 81 MG TABLET PO SCH (09:55)
[2020-05-23] MEDS: rOPINIRole 1 MG TABLET PO SCH (09:55)
[2020-05-23] MEDS: RIVASTIGMINE 1.5 MG CAPSULE PO SCH ×2 (09:55→20:32)
[2020-05-23] MEDS: PANTOPRAZOLE 40 MG TABLET PO SCH (09:55)
[2020-05-23] MEDS: AMIODARONE 200 MG TABLET PO SCH (09:55)
[2020-05-23] MEDS: LACTULOSE 20 GM/30 ML UDCUP PO SCH ×4 (09:55→20:32)
[2020-05-23] MEDS: ASCORBIC ACID 500 MG TABLET PO SCH (09:56)
[2020-05-23] MEDS: clonazePAM 0.5 MG TABLET PO SCH ×2 (09:57→20:33)
[2020-05-23] MEDS: FERROUS SULFATE 325 MG TABLET PO SCH (10:39)
[2020-05-23] MEDS: MIRTAZAPINE 15 MG TABLET PO SCH (20:32)
[2020-05-23] MEDS: traZODone 50 MG TABLET PO SCH (20:33)
[2020-05-23] MEDS: GABAPENTIN 600 MG TABLET PO SCH (20:33)
[2020-05-23] MEDS: DOCUSATE SODIUM 100 MG CAPSULE PO SCH (20:33)
[2020-05-23] MEDS ORDERED: SODIUM CHLORIDE 0.9% 1,000 ML IV PRN (23:56)
[2020-05-24] MEDS: cefOXitin 1,000 MG in SYRINGE 1 EACH IV SCH ×3 (02:27→17:05)
[2020-05-24] MEDS: ALBUMIN 25% 25 GM in PREMIX 1 EACH IV SCH ×3 (05:31→20:55)
[2020-05-24 06:01] LABS: Basophils % 0.5 % (0.0-0.8); Eosinophils # 0.3 10*3/uL (0.0-0.87); Eosinophils % 4.3 % (0.00-10.9); Hematocrit 20.4 VOL% (35.7-47.0); Hemoglobin 6.8 GM/DL (12.0-16.0); Immature Granulocytes % 2.3 %; Immature Granulocytes Absolute 0.14 #; Lymphocytes # 0.6 10*3/uL (1.4-4.0); Lymphocytes % 9.7 % (21.3-54.2); Mean Corpuscular HGB Conc 33.3 GM/DL (32-36); Mean Corpuscular Volume 98.1 FL (87-102); Mean Platelet Volume 9.7 FL (9.6-12.0); Monocytes % 7.2 % (1.7-12.7); NRBC # 0.03 10*3/uL; Red Blood Count 2.08 MC/CUMM (3.8-5.5); White Blood Count 6.2 T/CUMM (4-12)
[2020-05-24 06:12] LABS: Bilirubin,Total 1.1 MG/DL (0.2-1.0); Calcium 8.4 MG/DL (8.5-10.1); Osmolality,Calculated 281.1 MOS/KG (273-304); Total Protein 6.4 G/DL (6.4-8.3)
[2020-05-24 06:14] LABS: Platelet Count 54 T/CUMM (130-400)
[2020-05-24 06:26] LABS: Anisocytosis 1+; Band Neutrophils 1 % (0-10); Eosinophils 4 % (0-10); Hypochromasia 2+; Lymphocytes 8 % (20-55); Microcytosis 1+; Nucleated Red Blood Cells 2 (0-5); Segmented Neutrophils 80 % (50-85); Total Cells Counted 100
[2020-05-24 06:27] LABS: Platelet Estimate Decreased; Polychromasia Slight; Target Cells Slight
[2020-05-24] MEDS: LEVOTHYROXINE 88 MCG TABLET PO SCH (06:48)
[2020-05-24] MEDS: INSULIN REGULAR 100 UNIT/ML SUBCUT SCH ×4 (08:10→20:55)
[2020-05-24] MEDS ORDERED: NITROFURANTOIN MACRO/MONO 100 MG CAPSULE PO SCH (09:00)
[2020-05-24] MEDS: FOLIC ACID 1 MG TABLET PO SCH (09:29)
[2020-05-24] MEDS: FERROUS SULFATE 325 MG TABLET PO SCH (09:29)
[2020-05-24] MEDS: clonazePAM 0.5 MG TABLET PO SCH ×2 (09:29→20:55)
[2020-05-24] MEDS: AMIODARONE 200 MG TABLET PO SCH (09:29)
[2020-05-24] MEDS: ASCORBIC ACID 500 MG TABLET PO SCH (09:29)
[2020-05-24] MEDS: LACTULOSE 20 GM/30 ML UDCUP PO SCH ×3 (09:29→20:55)
[2020-05-24] MEDS: ASPIRIN EC 81 MG TABLET PO SCH (09:30)
[2020-05-24] MEDS: RIVASTIGMINE 1.5 MG CAPSULE PO SCH ×2 (09:30→20:55)
[2020-05-24] MEDS: rOPINIRole 1 MG TABLET PO SCH (09:30)
[2020-05-24] MEDS: RIFAXIMIN 550 MG TABLET PO SCH (09:30)
[2020-05-24] MEDS: PANTOPRAZOLE 40 MG TABLET PO SCH (09:30)
[2020-05-24] MEDS: AMPICILLIN 500 MG CAPSULE PO SCH ×4 (09:40→20:55)
[2020-05-24] MEDS: DOCUSATE SODIUM 100 MG CAPSULE PO SCH (20:55)
[2020-05-24] MEDS: traZODone 50 MG TABLET PO SCH (20:55)
[2020-05-24] MEDS: MIRTAZAPINE 15 MG TABLET PO SCH (20:55)
[2020-05-24] MEDS: GABAPENTIN 600 MG TABLET PO SCH (20:55)
[2020-05-25] MEDS: ALBUMIN 25% 25 GM in PREMIX 1 EACH IV SCH ×3 (05:00→21:35)
[2020-05-25] MEDS: LEVOTHYROXINE 88 MCG TABLET PO SCH (06:19)
[2020-05-25 06:37] LABS: Basophils % 0.4 % (0.0-0.8); Eosinophils # 0.3 10*3/uL (0.0-0.87); Hematocrit 23.1 VOL% (35.7-47.0); Hemoglobin 7.7 GM/DL (12.0-16.0); Immature Granulocytes % 2.3 %; Immature Granulocytes Absolute 0.19 #; Lymphocytes # 0.8 10*3/uL (1.4-4.0); Lymphocytes % 9.3 % (21.3-54.2); Mean Corpuscular HGB Conc 33.3 GM/DL (32-36); Mean Corpuscular Volume 96.7 FL (87-102); Mean Platelet Volume 9.7 FL (9.6-12.0); Monocytes % 7.8 % (1.7-12.7); NRBC # 0.06 10*3/uL; Neutrophils % 77.2 % (38.7-73.9); Red Blood Count 2.39 MC/CUMM (3.8-5.5); Red Cell Distribution Width 19.3 % (9.3-17.3); White Blood Count 8.3 T/CUMM (4-12)
[2020-05-25 06:40] LABS: Platelet Count 42 T/CUMM (130-400)
[2020-05-25 06:55] LABS: Calcium 8.3 MG/DL (8.5-10.1); Hypochromasia 2+; Microcytosis 1+; Osmolality,Calculated 277.1 MOS/KG (273-304)
[2020-05-25 06:56] LABS: Platelet Estimate Decreased
[2020-05-25] MEDS: INSULIN REGULAR 100 UNIT/ML SUBCUT SCH ×4 (08:16→21:35)
[2020-05-25] MEDS: rOPINIRole 1 MG TABLET PO SCH (08:50)
[2020-05-25] MEDS: FOLIC ACID 1 MG TABLET PO SCH (08:50)
[2020-05-25] MEDS: AMPICILLIN 500 MG CAPSULE PO SCH ×4 (08:50→21:35)
[2020-05-25] MEDS: RIVASTIGMINE 1.5 MG CAPSULE PO SCH ×2 (08:50→21:35)
[2020-05-25] MEDS: FERROUS SULFATE 325 MG TABLET PO SCH (08:50)
[2020-05-25] MEDS: PANTOPRAZOLE 40 MG TABLET PO SCH (08:50)
[2020-05-25] MEDS: traMADol 50 MG TABLET PO PRN ×2 (08:50→16:50)
[2020-05-25] MEDS: ASCORBIC ACID 500 MG TABLET PO SCH (08:50)
[2020-05-25] MEDS: LACTULOSE 20 GM/30 ML UDCUP PO SCH ×3 (08:50→21:35)
[2020-05-25] MEDS: AMIODARONE 200 MG TABLET PO SCH (08:50)
[2020-05-25] MEDS: ASPIRIN EC 81 MG TABLET PO SCH (08:50)
[2020-05-25] MEDS: clonazePAM 0.5 MG TABLET PO SCH ×2 (08:50→21:35)
[2020-05-25] MEDS ORDERED: SODIUM CHLORIDE 0.9% 1,000 ML IV PRN (14:05)
[2020-05-25] MEDS: GABAPENTIN 600 MG TABLET PO SCH (21:35)
[2020-05-25] MEDS: DOCUSATE SODIUM 100 MG CAPSULE PO SCH (21:35)
[2020-05-25] MEDS: traZODone 50 MG TABLET PO SCH (21:35)
[2020-05-25] MEDS: MIRTAZAPINE 15 MG TABLET PO SCH (21:35)
[2020-05-26] MEDS: ALBUMIN 25% 25 GM in PREMIX 1 EACH IV SCH ×3 (04:50→22:46)
[2020-05-26 05:33] LABS: Basophils % 0.4 % (0.0-0.8); Eosinophils # 0.2 10*3/uL (0.0-0.87); Eosinophils % 3.2 % (0.00-10.9); Hematocrit 21.2 VOL% (35.7-47.0); Immature Granulocytes % 1.6 %; Immature Granulocytes Absolute 0.12 #; Lymphocytes % 13.7 % (21.3-54.2); Mean Corpuscular Volume 97.7 FL (87-102); Mean Platelet Volume 9.7 FL (9.6-12.0); Monocytes % 7.3 % (1.7-12.7); NRBC # 0.03 10*3/uL; Neutrophils % 73.8 % (38.7-73.9); Red Blood Count 2.17 MC/CUMM (3.8-5.5); Red Cell Distribution Width 19.8 % (9.3-17.3); White Blood Count 7.5 T/CUMM (4-12)
[2020-05-26 05:38] LABS: Platelet Count 39 T/CUMM (130-400)
[2020-05-26 05:51] LABS: Albumin 2.7 G/DL (3.4-5.0); Bilirubin,Total 2.3 MG/DL (0.2-1.0); Calcium 8.4 MG/DL (8.5-10.1); Total Protein 6.7 G/DL (6.4-8.3)
[2020-05-26 05:53] LABS: Hypochromasia 2+; Microcytosis 1+; Target Cells Few
[2020-05-26 05:54] LABS: Anisocytosis 1+; Platelet Estimate Decreased; Polychromasia Slight
[2020-05-26] MEDS: LEVOTHYROXINE 88 MCG TABLET PO SCH (08:00)
[2020-05-26] MEDS ORDERED: SODIUM CHLORIDE 0.9% 1,000 ML IV PRN (08:52)
[2020-05-26] MEDS: AMPICILLIN 500 MG CAPSULE PO SCH ×4 (10:02→22:46)
[2020-05-26] MEDS: INSULIN REGULAR 100 UNIT/ML SUBCUT SCH ×4 (10:02→22:47)
[2020-05-26] MEDS: ASPIRIN EC 81 MG TABLET PO SCH (10:02)
[2020-05-26] MEDS: LACTULOSE 20 GM/30 ML UDCUP PO SCH ×3 (10:02→22:46)
[2020-05-26] MEDS: ASCORBIC ACID 500 MG TABLET PO SCH (10:03)
[2020-05-26] MEDS: AMIODARONE 200 MG TABLET PO SCH (10:03)
[2020-05-26] MEDS: FERROUS SULFATE 325 MG TABLET PO SCH (10:03)
[2020-05-26] MEDS: clonazePAM 0.5 MG TABLET PO SCH ×2 (10:03→22:47)
[2020-05-26] MEDS: FOLIC ACID 1 MG TABLET PO SCH (10:03)
[2020-05-26] MEDS: rOPINIRole 1 MG TABLET PO SCH (10:03)
[2020-05-26] MEDS: RIVASTIGMINE 1.5 MG CAPSULE PO SCH ×2 (10:03→22:47)
[2020-05-26] MEDS: traMADol 50 MG TABLET PO PRN ×2 (11:02→23:51)
[2020-05-26] MEDS: DOCUSATE SODIUM 100 MG CAPSULE PO SCH (22:47)
[2020-05-26] MEDS: traZODone 50 MG TABLET PO SCH (22:47)
[2020-05-26] MEDS: MIRTAZAPINE 15 MG TABLET PO SCH (22:47)
[2020-05-26] MEDS: GABAPENTIN 600 MG TABLET PO SCH (22:48)
[2020-05-27 05:26] LABS: Basophils % 0.3 % (0.0-0.8); Eosinophils # 0.3 10*3/uL (0.0-0.87); Eosinophils % 4.3 % (0.00-10.9); Hematocrit 25.4 VOL% (35.7-47.0); Hemoglobin 8.3 GM/DL (12.0-16.0); Immature Granulocytes % 1.5 %; Immature Granulocytes Absolute 0.12 #; Lymphocytes # 0.8 10*3/uL (1.4-4.0); Lymphocytes % 9.6 % (21.3-54.2); Mean Corpuscular HGB Conc 32.7 GM/DL (32-36); Mean Corpuscular Volume 98.1 FL (87-102); Mean Platelet Volume 10.1 FL (9.6-12.0); Monocytes % 7.4 % (1.7-12.7); Neutrophils % 76.9 % (38.7-73.9); Red Blood Count 2.59 MC/CUMM (3.8-5.5); Red Cell Distribution Width 19.4 % (9.3-17.3); White Blood Count 7.9 T/CUMM (4-12)
[2020-05-27 05:29] LABS: Platelet Count 57 T/CUMM (130-400)
[2020-05-27 05:50] LABS: Hypochromasia 1+; Microcytosis 1+; Ovalocytes Slight; Platelet Estimate Decreased
[2020-05-27 05:54] LABS: Albumin 3.2 G/DL (3.4-5.0); Bilirubin,Total 2.1 MG/DL (0.2-1.0); Calcium 8.7 MG/DL (8.5-10.1); Osmolality,Calculated 278.8 MOS/KG (273-304); Total Protein 7.2 G/DL (6.4-8.3)
[2020-05-27] MEDS: LEVOTHYROXINE 88 MCG TABLET PO SCH (06:37)
[2020-05-27] MEDS: ALBUMIN 25% 25 GM in PREMIX 1 EACH IV SCH ×2 (07:43→12:22)
[2020-05-27] MEDS: rOPINIRole 1 MG TABLET PO SCH (08:30)
[2020-05-27] MEDS: clonazePAM 0.5 MG TABLET PO SCH (08:30)
[2020-05-27] MEDS: RIVASTIGMINE 1.5 MG CAPSULE PO SCH (08:30)
[2020-05-27] MEDS: ASPIRIN EC 81 MG TABLET PO SCH (08:30)
[2020-05-27] MEDS: AMPICILLIN 500 MG CAPSULE PO SCH ×2 (08:30→12:23)
[2020-05-27] MEDS: ASCORBIC ACID 500 MG TABLET PO SCH (08:30)
[2020-05-27] MEDS: AMIODARONE 200 MG TABLET PO SCH (08:30)
[2020-05-27] MEDS: FERROUS SULFATE 325 MG TABLET PO SCH (08:30)
[2020-05-27] MEDS: FOLIC ACID 1 MG TABLET PO SCH (08:30)
[2020-05-27] MEDS ORDERED: FAMOTIDINE 20 MG TABLET PO SCH (09:00)
[2020-05-27] MEDS: INSULIN REGULAR 100 UNIT/ML SUBCUT SCH ×2 (09:10→12:23)
[2020-05-27] MEDS: LACTULOSE 20 GM/30 ML UDCUP PO SCH ×2 (09:11→14:17)
[2020-05-27] MEDS ORDERED: HEPARIN 10,000 UNIT/10 ML VIAL IV PRN (10:43)
[2020-05-27 12:23] VITALS: BP 121/53
== END 2020-05-27 15:44 | DRG 673 ==
LOC: EDBD → EDUNIT# → N.ED 14:41 → N.EDINP 14:41 → SUATTDRO 17:10 → N.2E 18:27
PROVIDERS: ADMIT Family Medicine; ATTEND Family Medicine

== ENCOUNTER 2020-06-27 19:23 | Inpatient (IN) ==
[2020-06-27] MEDS ORDERED: PIPERACILLIN/TAZOBACTAM 2,250 MG in SODIUM CHLORIDE 0.9% 100 ML IV STA (20:11)
[2020-06-27] MEDS ORDERED: PIPERACILLIN/TAZOBACTAM 3,375 MG in SODIUM CHLORIDE 0.9% 100 ML IV STA (20:13)
[2020-06-27 20:22] LABS: Basophils % 0.4 % (0.0-0.8); Eosinophils # 0.2 10*3/uL (0.0-0.87); Eosinophils % 2.3 % (0.00-10.9); Hemoglobin 6.7 GM/DL (12.0-16.0); Immature Granulocytes % 0.9 %; Immature Granulocytes Absolute 0.07 #; Lymphocytes # 1.1 10*3/uL (1.4-4.0); Lymphocytes % 14.6 % (21.3-54.2); Mean Corpuscular HGB Conc 33.5 GM/DL (32-36); Mean Corpuscular Volume 95.7 FL (87-102); Mean Platelet Volume 9.7 FL (9.6-12.0); Monocytes % 6.3 % (1.7-12.7); Neutrophils % 75.5 % (38.7-73.9); Platelet Count 62 T/CUMM (130-400); Red Blood Count 2.09 MC/CUMM (3.8-5.5); Red Cell Distribution Width 18.9 % (9.3-17.3); White Blood Count 7.4 T/CUMM (4-12)
[2020-06-27 20:37] LABS: Alanine Aminotransferase 22 U/L (13-56); Albumin 2.4 G/DL (3.4-5.0); Alkaline Phosphatase 114 U/L (45-117); Aspartate Amino Transferase 57 U/L (0-37); Blood Urea Nitrogen 42 MG/DL (7-18); Calcium 8.4 MG/DL (8.5-10.1); Carbon Dioxide 29 MMOL/L (21-32); Estimated Glom Filtration Rate 7 ML/MIN; Glucose 79 MG/DL (74-106); Osmolality,Calculated 277.2 MOS/KG (273-304); Potassium 4.9 MMOL/L (3.5-5.1); Sodium 134 MMOL/L (136-145); Total Protein 7.8 G/DL (6.4-8.3)
[2020-06-27 20:45] LABS: INR 1.3; PT Patient Result 13.4 SECS (9.8-11.9)
[2020-06-27 20:53] LABS: Prolactin 1.1 NG/ML
[2020-06-27] MEDS ORDERED: ROCURONIUM 100 MG/10 ML VIAL IV ONE (20:54)
[2020-06-27] MEDS ORDERED: ETOMIDATE 20 MG/10 ML VIAL IV ONE (20:54)
[2020-06-27] MEDS ORDERED: VECURONIUM 10 MG VIAL IV ONE ×2 (21:08→23:24)
[2020-06-27 21:17] LABS: ABG Base Excess 4.2 MMOL/L (-2.5-2.5); ABG HCO3 28.3 MMOL/L (20-26); ABG Oxygen Saturation 98.9 % (95-100); ABG PCO2 42.9 MM HG (35-48); ABG PH 7.435 (7.35-7.45); ABG TCO2 27.3 MMOL/L (23-27)
[2020-06-27 21:19] LABS: Glucose,Urine (UA) Negative (Negative); Ketones,Urine Negative (Negative); Protein,Urine >=500 MG/DL; Urine Appearance Turbid (Clear); Urine Color Amber (Yellow); Urine Specific Gravity 1.015 (1.001-1.035)
[2020-06-27 21:20] LABS: Bilirubin,Urine 2+ mg/dL (Negative); Blood, Urine 50 mg/dL (Negative); Nitrite,Urine Negative (Negative)
[2020-06-27 21:21] LABS: Mucus,Urine 2+ /LPF (Occasional); Urine Urobilinogen 0.2 EU/DL (0.2-1.0); WBC,Urine TNTC /HPF (0-6)
[2020-06-27 21:22] LABS: Bacteria,Urine Moderate /HPF (Few)
[2020-06-27 21:33] LABS: Barbiturates Screen,Urine Negative (Negative); Benzodiazepines Screen,Urine Negative (Negative); Cannabinoid Screen,Urine Negative (Negative); Opiate Screen,Urine Negative (Negative); Phencyclidine Screen,Urine Negative (Negative)
[2020-06-27 21:49] LABS: Polychromasia 1+
[2020-06-27 21:50] LABS: Anisocytosis 1+; Hypochromasia 2+; Macrocytosis Slight; Platelet Estimate Normal
[2020-06-27] MEDS ORDERED: MIDAZOLAM 100 MG in SODIUM CHLORIDE 0.9% 80 ML IV PRN (22:43)
[2020-06-27] MEDS ORDERED: ALBUTEROL 2.5 MG/3 ML NEB RESP TX PRN (22:56)
[2020-06-27] MEDS ORDERED: ONDANSETRON 4 MG/2 ML VIAL IV PRN (22:56)
[2020-06-27] MEDS ORDERED: PROMETHAZINE 25 MG/1 ML VIAL IM PRN (22:56)
[2020-06-27] MEDS ORDERED: LACTULOSE 20 GM/30 ML UDCUP PO PRN (23:00)
[2020-06-27] MEDS ORDERED: SODIUM CHLORIDE 0.9% 1,000 ML IV PRN (23:00)
[2020-06-27] MEDS ORDERED: SODIUM CHLORIDE 0.9% 1,000 ML IV SCH (23:00)
[2020-06-27] MEDS ORDERED: CIPROFLOXACIN INJ 400 MG in PREMIX 1 EACH IV SCH (23:30)
[2020-06-27] MEDS ORDERED: DEXTROSE 50% 25 GM/50 ML VIAL IV PRN (23:30)
[2020-06-27] MEDS ORDERED: GLUCAGON 1 MG VIAL IM PRN (23:30)
[2020-06-27] MEDS ORDERED: LINEZOLID INJ 600 MG in PREMIX 1 EACH IV SCH (23:30)
[2020-06-27] MEDS ORDERED: VECURONIUM 10 MG VIAL IV STA (23:31)
[2020-06-27] MEDS ORDERED: DEXTROSE 50% 25 GM/50 ML SYRINGE IV PRN (23:35)
[2020-06-28] MEDS ORDERED: VECURONIUM 10 MG VIAL IV ONE (01:01)
[2020-06-28] MEDS ORDERED: ETOMIDATE 20 MG/10 ML VIAL IV STA (01:01)
[2020-06-28] MEDS: PANTOPRAZOLE 40 MG VIAL IV SCH ×2 (01:47→23:40)
[2020-06-28] MEDS: INSULIN REGULAR 100 UNIT/ML SUBCUT SCH ×5 (01:47→23:54)
[2020-06-28] MEDS ORDERED: NITROGLYCERIN SL 0.4 MG TABLET SL PRN (02:48)
[2020-06-28 05:13] LABS: Allen Test Positive; Pt O2 Delivery Device Ventilator
[2020-06-28 05:18] LABS: ABG Base Excess 4.8 MMOL/L (-2.5-2.5); ABG HCO3 28.8 MMOL/L (20-26); ABG PCO2 32.8 MM HG (35-48); ABG PH 7.533 (7.35-7.45); ABG TCO2 26.3 MMOL/L (23-27)
[2020-06-28] MEDS: LEVOTHYROXINE 88 MCG TABLET PO SCH (07:30)
[2020-06-28 07:53] LABS: Basophils % 0.3 % (0.0-0.8); Eosinophils # 0.1 10*3/uL (0.0-0.87); Eosinophils % 1.5 % (0.00-10.9); Hematocrit 23.9 VOL% (35.7-47.0); Immature Granulocytes % 0.7 %; Immature Granulocytes Absolute 0.05 #; Lymphocytes # 0.8 10*3/uL (1.4-4.0); Lymphocytes % 12.3 % (21.3-54.2); Mean Corpuscular HGB Conc 34.7 GM/DL (32-36); Mean Corpuscular Volume 90.5 FL (87-102); Mean Platelet Volume 10.1 FL (9.6-12.0); Monocytes % 5.4 % (1.7-12.7); Neutrophils % 79.8 % (38.7-73.9); Red Cell Distribution Width 19.7 % (9.3-17.3); White Blood Count 6.8 T/CUMM (4-12)
[2020-06-28 07:55] LABS: Red Blood Count 2.64 MC/CUMM (3.8-5.5)
[2020-06-28 07:56] LABS: Hemoglobin 8.3 GM/DL (12.0-16.0); Platelet Count 55 T/CUMM (130-400)
[2020-06-28] MEDS ORDERED: VANCOMYCIN INJ 1,750 MG in SODIUM CHLORIDE 0.9% 250 ML IV ONE (08:00)
[2020-06-28 08:06] LABS: Calcium 8.3 MG/DL (8.5-10.1); Osmolality,Calculated 280.1 MOS/KG (273-304); Potassium 4.8 MMOL/L (3.5-5.1)
[2020-06-28 08:10] LABS: Hypochromasia 1+; Platelet Estimate Decreased
[2020-06-28] MEDS ORDERED: ASPIRIN EC 81 MG TABLET PO SCH (09:00)
[2020-06-28] MEDS ORDERED: rOPINIRole 1 MG TABLET PO SCH (09:00)
[2020-06-28 09:10] LABS: INR 1.4; PT Patient Result 14.6 SECS (9.8-11.9)
[2020-06-28] MEDS: FERROUS SULFATE 325 MG TABLET PO SCH (11:12)
[2020-06-28] MEDS: AMIODARONE 200 MG TABLET PO SCH (11:12)
[2020-06-28] MEDS: FOLIC ACID 1 MG TABLET PO SCH (11:12)
[2020-06-28] MEDS: RIFAXIMIN 550 MG TABLET PO SCH ×2 (11:13→20:43)
[2020-06-28] MEDS: ASCORBIC ACID 500 MG TABLET PO SCH (11:13)
[2020-06-28] MEDS: FAMOTIDINE 20 MG TABLET PO SCH (11:14)
[2020-06-28] MEDS ORDERED: ALTEPLASE 2 MG VIAL IV ONE (14:00)
[2020-06-28] MEDS: MEROPENEM 500 MG in SODIUM CHLORIDE 0.9% 100 ML IV SCH (16:02)
[2020-06-28 17:46] LABS: Hepatitis B Core IgM Quant 0.08 Index; Hepatitis B Surface Ag Quant < 0.10 Index; Hepatitis B Surface Ag Result Negative (Negative); Hepatitis C Virus Ab Quant 0.03 Index; Hepatitis C Virus Ab Result Negative (Negative)
[2020-06-28] MEDS: LACTULOSE 20 GM/30 ML UDCUP PO SCH (20:43)
[2020-06-28] MEDS: CARBOXYMETHYLCELLULOSE 1% OPH SOLN BOTH EYES SCH (20:44)
[2020-06-28] MEDS ORDERED: MIRTAZAPINE 15 MG TABLET PO SCH (21:00)
[2020-06-28] MEDS ORDERED: GABAPENTIN 300 MG CAPSULE PO SCH (21:00)
[2020-06-29 03:56] LABS: ABG Base Excess 2.6 MMOL/L (-2.5-2.5); ABG HCO3 26.8 MMOL/L (20-26); ABG Oxygen Saturation 99.9 % (95-100); ABG PCO2 33.7 MM HG (35-48); ABG PH 7.489 (7.35-7.45)
[2020-06-29 05:00] LABS: Basophils % 0.4 % (0.0-0.8); Eosinophils # 0.2 10*3/uL (0.0-0.87); Eosinophils % 2.6 % (0.00-10.9); Hematocrit 23.7 VOL% (35.7-47.0); Hemoglobin 8.2 GM/DL (12.0-16.0); Immature Granulocytes % 0.5 %; Immature Granulocytes Absolute 0.04 #; Lymphocytes # 0.8 10*3/uL (1.4-4.0); Lymphocytes % 10.3 % (21.3-54.2); Mean Corpuscular HGB Conc 34.6 GM/DL (32-36); Mean Corpuscular Volume 91.2 FL (87-102); Mean Platelet Volume 9.8 FL (9.6-12.0); Monocytes % 6.7 % (1.7-12.7); Neutrophils % 79.5 % (38.7-73.9); Red Cell Distribution Width 20.4 % (9.3-17.3); White Blood Count 7.9 T/CUMM (4-12)
[2020-06-29 05:02] LABS: Platelet Count 57 T/CUMM (130-400)
[2020-06-29 05:19] LABS: Albumin 1.9 G/DL (3.4-5.0); Bilirubin,Total 2.4 MG/DL (0.2-1.0); Osmolality,Calculated 283.5 MOS/KG (273-304); Potassium 4.3 MMOL/L (3.5-5.1); Total Protein 6.4 G/DL (6.4-8.3)
[2020-06-29] MEDS: INSULIN REGULAR 100 UNIT/ML SUBCUT SCH ×4 (05:44→23:33)
[2020-06-29] MEDS: LEVOTHYROXINE 88 MCG TABLET PO SCH (06:05)
[2020-06-29] MEDS: FAMOTIDINE 20 MG TABLET PO SCH (09:53)
[2020-06-29] MEDS: AMIODARONE 200 MG TABLET PO SCH (09:53)
[2020-06-29] MEDS: FERROUS SULFATE 325 MG TABLET PO SCH (09:53)
[2020-06-29] MEDS: ASPIRIN CHEW 81 MG TABLET PO SCH (09:53)
[2020-06-29] MEDS: FOLIC ACID 1 MG TABLET PO SCH (09:53)
[2020-06-29] MEDS: LACTULOSE 20 GM/30 ML UDCUP PO SCH ×3 (09:53→20:53)
[2020-06-29] MEDS: ASCORBIC ACID 500 MG TABLET PO SCH (09:54)
[2020-06-29] MEDS: RIFAXIMIN 550 MG TABLET PO SCH ×2 (09:54→20:54)
[2020-06-29] MEDS: MEROPENEM 500 MG in SODIUM CHLORIDE 0.9% 100 ML IV SCH (16:22)
[2020-06-29] MEDS: LEVOFLOXACIN INJ 500 MG in PREMIX 1 EACH IV SCH (16:57)
[2020-06-29] MEDS: DEXMEDETOMIDINE 400 MCG in SODIUM CHLORIDE 0.9% 96 ML IV PRN (18:40)
[2020-06-29] MEDS: PHENYLEPHRINE DRIP 40 MG/250 ML PREMIX IV PRN (19:37)
[2020-06-29] MEDS ORDERED: PHENYLEPHRINE DRIP 40 MG/250 ML PREMIX IV ONE (19:38)
[2020-06-29] MEDS: CARBOXYMETHYLCELLULOSE 1% OPH SOLN BOTH EYES SCH (20:54)
[2020-06-29] MEDS: PANTOPRAZOLE 40 MG VIAL IV SCH (22:15)
[2020-06-30 02:42] LABS: ABG Base Excess 2.2 MMOL/L (-2.5-2.5); ABG HCO3 26.4 MMOL/L (20-26); ABG Oxygen Saturation 99.7 % (95-100); ABG PCO2 27.7 MM HG (35-48); ABG PH 7.545 (7.35-7.45); ABG TCO2 21.7 MMOL/L (23-27)
[2020-06-30 04:46] LABS: Basophils % 0.3 % (0.0-0.8); Eosinophils # 0.4 10*3/uL (0.0-0.87); Eosinophils % 2.9 % (0.00-10.9); Hematocrit 29.3 VOL% (35.7-47.0); Immature Granulocytes % 0.6 %; Immature Granulocytes Absolute 0.07 #; Lymphocytes # 1.2 10*3/uL (1.4-4.0); Lymphocytes % 10.3 % (21.3-54.2); Mean Corpuscular HGB Conc 33.8 GM/DL (32-36); Mean Corpuscular Volume 91.3 FL (87-102); Mean Platelet Volume 9.6 FL (9.6-12.0); Monocytes % 6.7 % (1.7-12.7); Neutrophils % 79.2 % (38.7-73.9); Red Cell Distribution Width 20.7 % (9.3-17.3)
[2020-06-30 04:48] LABS: Red Blood Count 3.21 MC/CUMM (3.8-5.5); White Blood Count 11.9 T/CUMM (4-12)
[2020-06-30 04:49] LABS: Hemoglobin 9.9 GM/DL (12.0-16.0); Platelet Count 87 T/CUMM (130-400)
[2020-06-30 04:54] LABS: Albumin 2.1 G/DL (3.4-5.0); Bilirubin,Total 2.3 MG/DL (0.2-1.0); Calcium 8.7 MG/DL (8.5-10.1); Osmolality,Calculated 283.8 MOS/KG (273-304); Total Protein 7.5 G/DL (6.4-8.3)
[2020-06-30 05:08] LABS: Platelet Estimate Decreased
[2020-06-30 05:09] LABS: Hypochromasia Slight
[2020-06-30] MEDS: INSULIN REGULAR 100 UNIT/ML SUBCUT SCH ×3 (05:16→18:20)
[2020-06-30] MEDS: LEVOTHYROXINE 88 MCG TABLET PO SCH (06:20)
[2020-06-30] MEDS: DEXMEDETOMIDINE 400 MCG in SODIUM CHLORIDE 0.9% 96 ML IV PRN (07:13)
[2020-06-30] MEDS: LACTULOSE 20 GM/30 ML UDCUP PO SCH ×3 (08:00→20:42)
[2020-06-30] MEDS: ASPIRIN CHEW 81 MG TABLET PO SCH (08:00)
[2020-06-30] MEDS: FOLIC ACID 1 MG TABLET PO SCH (08:00)
[2020-06-30] MEDS: FAMOTIDINE 20 MG TABLET PO SCH (08:01)
[2020-06-30] MEDS: RIFAXIMIN 550 MG TABLET PO SCH ×2 (08:02→20:36)
[2020-06-30] MEDS: AMIODARONE 200 MG TABLET PO SCH (08:02)
[2020-06-30] MEDS: ASCORBIC ACID 500 MG TABLET PO SCH (08:02)
[2020-06-30] MEDS: FERROUS SULFATE 325 MG TABLET PO SCH (08:02)
[2020-06-30] MEDS: MEROPENEM 500 MG in SODIUM CHLORIDE 0.9% 100 ML IV SCH (14:35)
[2020-06-30] MEDS ORDERED: ALBUMIN 5% 12.5 GM/250 ML VIAL IV ONE (16:39)
[2020-06-30] MEDS ORDERED: ALBUMIN 25% 25 GM in PREMIX 1 EACH IV PRN (16:42)
[2020-06-30] MEDS ORDERED: HEPARIN 10,000 UNIT/10 ML VIAL IV SCH (16:45)
[2020-06-30] MEDS ORDERED: ALBUMIN 25% 25 GM in PREMIX 1 EACH IV ONE (17:00)
[2020-06-30] MEDS: CARBOXYMETHYLCELLULOSE 1% OPH SOLN BOTH EYES SCH (20:36)
[2020-06-30] MEDS: PHENYLEPHRINE DRIP 40 MG/250 ML PREMIX IV PRN (20:38)
[2020-07-01] MEDS: INSULIN REGULAR 100 UNIT/ML SUBCUT SCH ×4 (00:21→18:33)
[2020-07-01 03:55] LABS: Basophils % 0.3 % (0.0-0.8); Eosinophils # 0.2 10*3/uL (0.0-0.87); Eosinophils % 1.9 % (0.00-10.9); Hematocrit 26.4 VOL% (35.7-47.0); Hemoglobin 8.9 GM/DL (12.0-16.0); Immature Granulocytes % 0.6 %; Immature Granulocytes Absolute 0.07 #; Lymphocytes % 8.1 % (21.3-54.2); Mean Corpuscular HGB Conc 33.7 GM/DL (32-36); Mean Corpuscular Volume 91.7 FL (87-102); Mean Platelet Volume 9.7 FL (9.6-12.0); Monocytes % 5.3 % (1.7-12.7); Neutrophils % 83.8 % (38.7-73.9); Red Blood Count 2.88 MC/CUMM (3.8-5.5); Red Cell Distribution Width 20.5 % (9.3-17.3); White Blood Count 12.5 T/CUMM (4-12)
[2020-07-01 04:04] LABS: Platelet Count 60 T/CUMM (130-400)
[2020-07-01 04:14] LABS: Hypochromasia 1+; Microcytosis 1+; Platelet Estimate Decreased
[2020-07-01 04:25] LABS: Albumin 2.6 G/DL (3.4-5.0); Bilirubin,Total 2.1 MG/DL (0.2-1.0); Calcium 8.8 MG/DL (8.5-10.1); Osmolality,Calculated 284.7 MOS/KG (273-304); Potassium 3.9 MMOL/L (3.5-5.1); Total Protein 7.1 G/DL (6.4-8.3)
[2020-07-01 04:47] LABS: ABG Base Excess 1.5 MMOL/L (-2.5-2.5); ABG HCO3 25.8 MMOL/L (20-26); ABG Oxygen Saturation 99.8 % (95-100); ABG PCO2 30.7 MM HG (35-48); ABG PH 7.504 (7.35-7.45); ABG TCO2 22.2 MMOL/L (23-27); Allen Test Positive; Pt O2 Delivery Device Ventilator
[2020-07-01] MEDS: LEVOTHYROXINE 88 MCG TABLET PO SCH (05:30)
[2020-07-01] MEDS: ASCORBIC ACID 500 MG TABLET PO SCH (08:40)
[2020-07-01] MEDS: FOLIC ACID 1 MG TABLET PO SCH (08:40)
[2020-07-01] MEDS: ASPIRIN CHEW 81 MG TABLET PO SCH (08:40)
[2020-07-01] MEDS: LACTULOSE 20 GM/30 ML UDCUP PO SCH ×3 (08:40→20:44)
[2020-07-01] MEDS: AMIODARONE 200 MG TABLET PO SCH (08:40)
[2020-07-01] MEDS: RIFAXIMIN 550 MG TABLET PO SCH ×2 (08:40→20:43)
[2020-07-01] MEDS: FERROUS SULFATE 325 MG TABLET PO SCH (08:40)
[2020-07-01] MEDS: FAMOTIDINE 20 MG TABLET PO SCH (08:40)
[2020-07-01] MEDS ORDERED: INFLUENZA VIRUS VACCINE 0.5 ML SYRINGE IM ONE (09:00)
[2020-07-01] MEDS: PHENYLEPHRINE DRIP 40 MG/250 ML PREMIX IV PRN ×2 (12:41→21:40)
[2020-07-01] MEDS: MEROPENEM 500 MG in SODIUM CHLORIDE 0.9% 100 ML IV SCH (13:37)
[2020-07-01] MEDS: LEVOFLOXACIN INJ 500 MG in PREMIX 1 EACH IV SCH (15:07)
[2020-07-01] MEDS: CARBOXYMETHYLCELLULOSE 1% OPH SOLN BOTH EYES SCH (20:43)
[2020-07-01] MEDS: PRAMOXINE/HYDROCORTISONE RECTAL FOAM 10 GM CAN TOP SCH (22:00)
[2020-07-02] MEDS: INSULIN REGULAR 100 UNIT/ML SUBCUT SCH ×6 (00:04→20:06)
[2020-07-02 04:21] LABS: ABG Base Excess 0.2 MMOL/L (-2.5-2.5); ABG HCO3 24.6 MMOL/L (20-26); ABG Oxygen Saturation 98.4 % (95-100); ABG PCO2 41.7 MM HG (35-48); ABG PH 7.389 (7.35-7.45); ABG TCO2 23.3 MMOL/L (23-27); Allen Test Positive
[2020-07-02 05:20] LABS: Basophils % 0.3 % (0.0-0.8); Eosinophils # 0.4 10*3/uL (0.0-0.87); Hematocrit 25.6 VOL% (35.7-47.0); Hemoglobin 8.5 GM/DL (12.0-16.0); Immature Granulocytes % 1.2 %; Immature Granulocytes Absolute 0.15 #; Lymphocytes # 1.4 10*3/uL (1.4-4.0); Lymphocytes % 11.3 % (21.3-54.2); Mean Corpuscular HGB Conc 33.2 GM/DL (32-36); Mean Corpuscular Volume 94.8 FL (87-102); Mean Platelet Volume 10.2 FL (9.6-12.0); Monocytes % 9.6 % (1.7-12.7); NRBC # 0.02 10*3/uL; Neutrophils % 74.6 % (38.7-73.9); White Blood Count 12.5 T/CUMM (4-12)
[2020-07-02 05:23] LABS: Platelet Count 56 T/CUMM (130-400)
[2020-07-02 05:44] LABS: Albumin 2.3 G/DL (3.4-5.0); Bilirubin,Total 2.3 MG/DL (0.2-1.0); Calcium 8.9 MG/DL (8.5-10.1); Osmolality,Calculated 287.5 MOS/KG (273-304); Potassium 4.2 MMOL/L (3.5-5.1); Total Protein 7.2 G/DL (6.4-8.3)
[2020-07-02 06:02] LABS: Band Neutrophils 1 % (0-10); Eosinophils 2 % (0-10); Hypochromasia Slight; Lymphocytes 10 % (20-55); Platelet Estimate Decreased; Segmented Neutrophils 87 % (50-85); Total Cells Counted 100
[2020-07-02] MEDS: LEVOTHYROXINE 88 MCG TABLET PO SCH (06:29)
[2020-07-02] MEDS: PHENYLEPHRINE DRIP 40 MG/250 ML PREMIX IV PRN ×2 (07:00→17:40)
[2020-07-02] MEDS: ASPIRIN CHEW 81 MG TABLET PO SCH (08:40)
[2020-07-02] MEDS: AMIODARONE 200 MG TABLET PO SCH (08:40)
[2020-07-02] MEDS: FOLIC ACID 1 MG TABLET PO SCH (08:40)
[2020-07-02] MEDS: FERROUS SULFATE 325 MG TABLET PO SCH (08:40)
[2020-07-02] MEDS: ASCORBIC ACID 500 MG TABLET PO SCH (08:40)
[2020-07-02] MEDS: FAMOTIDINE 20 MG TABLET PO SCH (08:40)
[2020-07-02] MEDS: LACTULOSE 20 GM/30 ML UDCUP PO SCH ×3 (08:40→21:56)
[2020-07-02] MEDS: RIFAXIMIN 550 MG TABLET PO SCH ×2 (08:40→21:57)
[2020-07-02] MEDS: PRAMOXINE/HYDROCORTISONE RECTAL FOAM 10 GM CAN TOP SCH ×3 (09:00→21:56)
[2020-07-02] MEDS: MEROPENEM 500 MG in SODIUM CHLORIDE 0.9% 100 ML IV SCH (13:25)
[2020-07-02] MEDS: CARBOXYMETHYLCELLULOSE 1% OPH SOLN BOTH EYES SCH (21:56)
[2020-07-03 04:08] LABS: Basophils % 0.3 % (0.0-0.8); Eosinophils # 0.3 10*3/uL (0.0-0.87); Eosinophils % 2.6 % (0.00-10.9); Hematocrit 23.5 VOL% (35.7-47.0); Hemoglobin 7.5 GM/DL (12.0-16.0); Immature Granulocytes % 0.8 %; Immature Granulocytes Absolute 0.09 #; Lymphocytes # 1.4 10*3/uL (1.4-4.0); Lymphocytes % 13.1 % (21.3-54.2); Mean Corpuscular HGB Conc 31.9 GM/DL (32-36); Mean Corpuscular Volume 95.1 FL (87-102); Monocytes % 9.5 % (1.7-12.7); Neutrophils % 73.7 % (38.7-73.9); Red Blood Count 2.47 MC/CUMM (3.8-5.5); Red Cell Distribution Width 20.7 % (9.3-17.3); White Blood Count 10.6 T/CUMM (4-12)
[2020-07-03 04:10] LABS: Platelet Count 41 T/CUMM (130-400)
[2020-07-03 04:23] LABS: Albumin 2.4 G/DL (3.4-5.0); Bilirubin,Total 1.8 MG/DL (0.2-1.0); Calcium 8.5 MG/DL (8.5-10.1); Osmolality,Calculated 279.1 MOS/KG (273-304); Potassium 4.2 MMOL/L (3.5-5.1); Total Protein 7.2 G/DL (6.4-8.3)
[2020-07-03 05:01] LABS: Hypochromasia 2+; Microcytosis 1+; Platelet Estimate Decreased
[2020-07-03] MEDS: LEVOTHYROXINE 88 MCG TABLET PO SCH (07:07)
[2020-07-03] MEDS: INSULIN REGULAR 100 UNIT/ML SUBCUT SCH ×3 (07:30→16:10)
[2020-07-03] MEDS: PHENYLEPHRINE DRIP 40 MG/250 ML PREMIX IV PRN (08:00)
[2020-07-03] MEDS: LACTULOSE 20 GM/30 ML UDCUP PO SCH ×3 (08:40→20:32)
[2020-07-03] MEDS: FOLIC ACID 1 MG TABLET PO SCH (08:40)
[2020-07-03] MEDS: RIFAXIMIN 550 MG TABLET PO SCH ×2 (08:40→20:32)
[2020-07-03] MEDS: FERROUS SULFATE 325 MG TABLET PO SCH (08:40)
[2020-07-03] MEDS: FAMOTIDINE 20 MG TABLET PO SCH (08:40)
[2020-07-03] MEDS: ASPIRIN CHEW 81 MG TABLET PO SCH (08:40)
[2020-07-03] MEDS: AMIODARONE 200 MG TABLET PO SCH (08:40)
[2020-07-03] MEDS: ASCORBIC ACID 500 MG TABLET PO SCH (08:40)
[2020-07-03] MEDS: PRAMOXINE/HYDROCORTISONE RECTAL FOAM 10 GM CAN TOP SCH ×3 (09:45→20:32)
[2020-07-03] MEDS: MEROPENEM 500 MG in SODIUM CHLORIDE 0.9% 100 ML IV SCH (14:00)
[2020-07-03] MEDS: LEVOFLOXACIN INJ 500 MG in PREMIX 1 EACH IV SCH (16:00)
[2020-07-03 19:03] LABS: Potassium 4.2 MMOL/L (3.5-5.1)
[2020-07-03] MEDS: CARBOXYMETHYLCELLULOSE 1% OPH SOLN BOTH EYES SCH (20:32)
[2020-07-04] MEDS: LEVOTHYROXINE 88 MCG TABLET PO SCH (07:15)
[2020-07-04] MEDS: ASPIRIN CHEW 81 MG TABLET PO SCH (10:51)
[2020-07-04] MEDS: LACTULOSE 20 GM/30 ML UDCUP PO SCH ×3 (10:52→22:01)
[2020-07-04] MEDS: ASCORBIC ACID 500 MG TABLET PO SCH (10:52)
[2020-07-04] MEDS: RIFAXIMIN 550 MG TABLET PO SCH ×2 (10:52→22:01)
[2020-07-04] MEDS: FAMOTIDINE 20 MG TABLET PO SCH (10:53)
[2020-07-04] MEDS: AMIODARONE 200 MG TABLET PO SCH (10:53)
[2020-07-04] MEDS: FERROUS SULFATE 325 MG TABLET PO SCH (10:53)
[2020-07-04] MEDS: FOLIC ACID 1 MG TABLET PO SCH (10:53)
[2020-07-04] MEDS: PRAMOXINE/HYDROCORTISONE RECTAL FOAM 10 GM CAN TOP SCH ×3 (15:11→22:01)
[2020-07-04] MEDS: MEROPENEM 500 MG in SODIUM CHLORIDE 0.9% 100 ML IV SCH (15:18)
[2020-07-04] MEDS: CARBOXYMETHYLCELLULOSE 1% OPH SOLN BOTH EYES SCH (22:06)
[2020-07-05] MEDS: PRAMOXINE/HYDROCORTISONE RECTAL FOAM 10 GM CAN TOP SCH ×2 (03:11→16:30)
[2020-07-05] MEDS: LEVOTHYROXINE 88 MCG TABLET PO SCH (06:18)
[2020-07-05 06:26] LABS: Basophils % 0.3 % (0.0-0.8); Eosinophils # 0.3 10*3/uL (0.0-0.87); Eosinophils % 4.6 % (0.00-10.9); Hematocrit 21.7 VOL% (35.7-47.0); Hemoglobin 7.2 GM/DL (12.0-16.0); Immature Granulocytes Absolute 0.07 #; Lymphocytes % 13.9 % (21.3-54.2); Mean Corpuscular HGB Conc 33.2 GM/DL (32-36); Mean Corpuscular Volume 95.2 FL (87-102); Mean Platelet Volume 10.8 FL (9.6-12.0); Monocytes % 10.9 % (1.7-12.7); Neutrophils % 69.3 % (38.7-73.9); Red Blood Count 2.28 MC/CUMM (3.8-5.5); Red Cell Distribution Width 20.2 % (9.3-17.3); White Blood Count 6.9 T/CUMM (4-12)
[2020-07-05 06:32] LABS: Platelet Count 38 T/CUMM (130-400)
[2020-07-05 06:46] LABS: Hypochromasia 2+; Microcytosis 1+; Ovalocytes Slight; Platelet Estimate Decreased
[2020-07-05 06:50] LABS: Albumin 2.3 G/DL (3.4-5.0); Bilirubin,Total 2.1 MG/DL (0.2-1.0); Calcium 8.8 MG/DL (8.5-10.1); Potassium 4.3 MMOL/L (3.5-5.1); Total Protein 7.3 G/DL (6.4-8.3)
[2020-07-05] MEDS ORDERED: SODIUM CHLORIDE 0.9% 1,000 ML IV PRN (11:27)
[2020-07-05] MEDS ORDERED: ALTEPLASE 2 MG VIAL IV ONE (12:00)
[2020-07-05] MEDS: RIFAXIMIN 550 MG TABLET PO SCH ×2 (16:30→21:31)
[2020-07-05] MEDS: LACTULOSE 20 GM/30 ML UDCUP PO SCH ×3 (16:31→22:42)
[2020-07-05] MEDS: ASPIRIN CHEW 81 MG TABLET PO SCH (16:50)
[2020-07-05] MEDS: FOLIC ACID 1 MG TABLET PO SCH (16:51)
[2020-07-05] MEDS: AMIODARONE 200 MG TABLET PO SCH (16:51)
[2020-07-05] MEDS: FERROUS SULFATE 325 MG TABLET PO SCH (16:51)
[2020-07-05] MEDS: FAMOTIDINE 20 MG TABLET PO SCH (16:51)
[2020-07-05] MEDS: ASCORBIC ACID 500 MG TABLET PO SCH (16:51)
[2020-07-05] MEDS: LEVOFLOXACIN INJ 500 MG in PREMIX 1 EACH IV SCH (17:01)
[2020-07-05] MEDS: MEROPENEM 500 MG in SODIUM CHLORIDE 0.9% 100 ML IV SCH (17:01)
[2020-07-05] MEDS: CARBOXYMETHYLCELLULOSE 1% OPH SOLN BOTH EYES SCH (21:36)
[2020-07-05] MEDS: hydrOXYzine HCL 25 MG TABLET PO PRN (22:33)
[2020-07-06] MEDS: PRAMOXINE/HYDROCORTISONE RECTAL FOAM 10 GM CAN TOP SCH ×4 (01:24→22:49)
[2020-07-06] MEDS: LEVOTHYROXINE 88 MCG TABLET PO SCH (06:31)
[2020-07-06 06:46] LABS: Basophils % 0.6 % (0.0-0.8); Eosinophils # 0.3 10*3/uL (0.0-0.87); Eosinophils % 4.5 % (0.00-10.9); Hematocrit 27.3 VOL% (35.7-47.0); Immature Granulocytes % 1.6 %; Lymphocytes % 15.8 % (21.3-54.2); Mean Corpuscular HGB Conc 32.6 GM/DL (32-36); Mean Corpuscular Volume 96.1 FL (87-102); Mean Platelet Volume 11.2 FL (9.6-12.0); Monocytes % 12.1 % (1.7-12.7); Neutrophils % 65.4 % (38.7-73.9); Red Cell Distribution Width 18.7 % (9.3-17.3); White Blood Count 6.5 T/CUMM (4-12)
[2020-07-06 06:55] LABS: Platelet Count 35 T/CUMM (130-400); Red Blood Count 2.84 MC/CUMM (3.8-5.5)
[2020-07-06 06:56] LABS: Hemoglobin 8.9 GM/DL (12.0-16.0)
[2020-07-06 06:58] LABS: Calcium 8.2 MG/DL (8.5-10.1); Osmolality,Calculated 287.5 MOS/KG (273-304); Potassium 4.3 MMOL/L (3.5-5.1)
[2020-07-06 07:05] LABS: Hypochromasia 2+; Microcytosis 1+
[2020-07-06 07:06] LABS: Ovalocytes Slight; Platelet Estimate Decreased
[2020-07-06] MEDS: FAMOTIDINE 20 MG TABLET PO SCH (09:43)
[2020-07-06] MEDS: RIFAXIMIN 550 MG TABLET PO SCH ×2 (09:43→22:49)
[2020-07-06] MEDS: LACTULOSE 20 GM/30 ML UDCUP PO SCH ×2 (09:43→22:49)
[2020-07-06] MEDS: ASPIRIN CHEW 81 MG TABLET PO SCH (09:43)
[2020-07-06] MEDS: ASCORBIC ACID 500 MG TABLET PO SCH (09:43)
[2020-07-06] MEDS: AMIODARONE 200 MG TABLET PO SCH (09:43)
[2020-07-06] MEDS: FOLIC ACID 1 MG TABLET PO SCH (09:43)
[2020-07-06] MEDS: FERROUS SULFATE 325 MG TABLET PO SCH (09:43)
[2020-07-06] MEDS: MEROPENEM 500 MG in SODIUM CHLORIDE 0.9% 100 ML IV SCH (17:10)
[2020-07-06] MEDS: diphenhydrAMINE CAP 25 MG CAPSULE PO PRN (17:12)
[2020-07-06] MEDS: hydrOXYzine HCL 25 MG TABLET PO PRN (22:50)
[2020-07-07] MEDS: CARBOXYMETHYLCELLULOSE 1% OPH SOLN BOTH EYES SCH (02:48)
[2020-07-07] MEDS: diphenhydrAMINE CAP 25 MG CAPSULE PO PRN (03:30)
[2020-07-07] MEDS: LEVOTHYROXINE 88 MCG TABLET PO SCH (05:56)
[2020-07-07 06:00] LABS: Basophils # 0.1 10*3/uL (0.0-0.2); Basophils % 0.8 % (0.0-0.8); Eosinophils # 0.3 10*3/uL (0.0-0.87); Eosinophils % 4.9 % (0.00-10.9); Hemoglobin 9.2 GM/DL (12.0-16.0); Immature Granulocytes % 1.8 %; Immature Granulocytes Absolute 0.11 #; Lymphocytes % 16.1 % (21.3-54.2); Mean Corpuscular HGB Conc 32.9 GM/DL (32-36); Mean Corpuscular Volume 96.2 FL (87-102); Mean Platelet Volume 10.3 FL (9.6-12.0); Monocytes % 12.3 % (1.7-12.7); Neutrophils % 64.1 % (38.7-73.9); Red Blood Count 2.91 MC/CUMM (3.8-5.5); Red Cell Distribution Width 18.6 % (9.3-17.3); White Blood Count 6.3 T/CUMM (4-12)
[2020-07-07 06:07] LABS: Calcium 8.5 MG/DL (8.5-10.1); Osmolality,Calculated 286.8 MOS/KG (273-304); Potassium 4.3 MMOL/L (3.5-5.1)
[2020-07-07 06:32] LABS: Platelet Count 36 T/CUMM (130-400)
[2020-07-07 06:35] LABS: Hypochromasia 1+; Microcytosis 1+; Platelet Estimate Decreased
[2020-07-07] MEDS: LACTULOSE 20 GM/30 ML UDCUP PO SCH (14:08)
[2020-07-07] MEDS: FOLIC ACID 1 MG TABLET PO SCH (14:16)
[2020-07-07] MEDS: ASPIRIN CHEW 81 MG TABLET PO SCH (14:16)
[2020-07-07] MEDS: AMIODARONE 200 MG TABLET PO SCH (14:16)
[2020-07-07] MEDS: FERROUS SULFATE 325 MG TABLET PO SCH (14:16)
[2020-07-07] MEDS: ASCORBIC ACID 500 MG TABLET PO SCH (14:17)
[2020-07-07] MEDS: RIFAXIMIN 550 MG TABLET PO SCH (14:17)
[2020-07-07] MEDS: PRAMOXINE/HYDROCORTISONE RECTAL FOAM 10 GM CAN TOP SCH ×2 (14:17→15:12)
[2020-07-07] MEDS: FAMOTIDINE 20 MG TABLET PO SCH (14:17)
[2020-07-07] MEDS: MEROPENEM 500 MG in SODIUM CHLORIDE 0.9% 100 ML IV SCH (15:12)
[2020-07-07 15:30] VITALS: BP 115/67
== END 2020-07-07 18:03 | disposition hospice, home (50) | DRG 441 ==
LOC: N.ED 19:23 → N.EDINP 21:18 → SUATTDRO 21:18 → N.EDINP 06-28 02:20 → N.ICU 06-28 02:37 → N.TELEN 07-04 16:19
PROVIDERS: ADMIT Internal Medicine; ATTEND Family Medicine